=== PATIENT | female | born 1950 | race Caucasian/White ===

== ENCOUNTER → 2018-05-27 09:35 | Outpatient (CLI) | payer MEDICARE, SELFPAY ==
--- NOTE | 2018-05-27 09:40 | MM_ITS ---
MM Dig screening mamm BI w/CAD ORDERING PHYSICIAN : Hoa Malcolm MD PATIENT AGE: 67 years GENDER: Female COMPARISON: Prior studies from [facility]: March 2013, April 2016, October 2011 INDICATION: ITS.REASON: SCREENING no hormones. No new complaints. Noncontributory family history. TECHNIQUE: Standard CC and MLO images were obtained. R2 CAD reviewed. FINDINGS: Mild to moderate residual fibroglandular elements throughout the central and superior breast. Overall fairly Low-density breast bilaterally with no dominant mass nor suspicious calcifications. No significant new areas concern CAD computer review highlights no areas of concern either. bilateral follow-up in one year adequate. . IMPRESSION: ............... Stable bilateral mammogram. No areas of concern No significant new findings. Bilateral follow-up in one year recommended BI-RADS Category: 1 Negative RECOMMENDED FOLLOW-UP: 1YR 1 YEAR FOLLOW-UP (A letter has been sent to the patient regarding results of the study.)
== END ==
PROVIDERS: PCP Emergency Medicine; Visit Provider Emergency Medicine
DX: Z12.31 Encounter for screening mammogram for malignant neoplasm of breast (principal)
CPT/HCPCS: 77067

== ENCOUNTER → 2019-09-27 09:27 | Outpatient (CLI) | payer MEDICARE, SELFPAY ==
[2019-09-27 10:20] VITALS: PULSE 65; PULSE 68
== END ==
PROVIDERS: PCP Family Medicine; Visit Provider Family Medicine
DX: R06.2 Wheezing (principal)
CPT/HCPCS: 94060; 94640

== ENCOUNTER → 2019-11-22 15:36 | Outpatient (CLI) | payer MEDICARE, SELFPAY ==
--- NOTE | 2019-11-22 | XR_ITS ---
PROCEDURE: XR SHOULDER RT MIN 2V CLINICAL INDICATION: Right shoulder pain COMPARISON: No exams were available for comparison FINDINGS: Hypertrophic changes are present at the a chromium with subacromial stenosis. A bony anchor is present at the humeral head with some mild sclerosis along the humeral head. The scapular Y-view suggest an old humeral neck fracture. This however is uncertain. Please correlate with patient's history. Mild osteoarthritic changes are present at the glenohumeral joint. Other findings:None. IMPRESSION: Osteoarthritic and postsurgical changes with questionable old humeral neck fracture Dictated by: Bashir Nicholas MD 11/23/2019 05:07 Bashir Nicholas MD in [place] 11/23/2019 05:07
== END ==
PROVIDERS: PCP Family Medicine; Visit Provider Family Medicine
DX: D69.9 Hemorrhagic condition, unspecified (principal)
CPT/HCPCS: 73030

== ENCOUNTER → 2020-02-04 12:46 | Outpatient (CLI) | payer MEDICARE, SELFPAY ==
[2020-02-04 14:56] LABS: Basophils % 0.3 % (0.1-2.0); Eosinophils # 0.1 K/mm3 (0.0-0.4); Eosinophils % 1.8 % (0.1-12.0); Hematocrit 40.9 % (37.0-47.0); Hemoglobin 12.9 g/dL (12.2-16.2); Lymphocytes # 0.9 K/mm3 (0.7-4.5); Lymphocytes % 16.7 % (10-50); Mean Corpuscular HGB Conc 31.4 g/dL (31.8-35.4); Mean Corpuscular Hemoglobin 30.4 pg (27.0-31.2); Mean Corpuscular Volume 96.6 fl (81-99); Mean Platelet Volume 8.6 fl (7.4-10.4); Monocytes # 0.5 K/mm3 (0.1-1.0); Monocytes % 8.4 % (1.7-9.3); Neutrophils % 72.8 % (37.0-80.0); Platelet Count 223 K/mm3 (142-424); Red Blood Count 4.24 M/mm3 (4.20-5.40); Red Cell Distribution Width 16.5 % (11.5-17.5); White Blood Count 5.4 K/mm3 (4.8-10.8)
== END ==
PROVIDERS: PCP Family Medicine; Visit Provider Nurse Practitioner
DX: Z03.818 Encounter for observation for suspected exposure to other biological agents ruled out (principal)
CPT/HCPCS: 36415; 85025; U0003

== ENCOUNTER → 2020-04-20 09:50 | Outpatient (CLI) | payer MEDICARE, SELFPAY ==
--- NOTE | 2020-04-20 09:52 | MM_ITS ---
PROCEDURE: MM DIG SCREENING MAMM BI W/CAD Digital Breast Tomosynthesis Included CLINICAL INDICATION: SCREENING There is a history of breast cancer in the patient's maternal grandmother diagnosed at age 52. COMPARISON: MG MM MAMMO DIGITAL SCREENING W CAD BILAT from 04/13/2010 MG MM MAMMO DIGITAL SCREENING W CAD BILAT from 11/13/2011 MG [facility]BI MM Dig screening mamm BI w/CAD from 05/27/2018 TECHNIQUE: Standard CC and MLO images and 3D Tomosynthesis was obtained. R2 CAD reviewed. FINDINGS: Mild scattered fibroglandular densities are seen in both breast on a background of fatty breast parenchyma. There are no suspicious lesion in either breast and no suspicious microcalcifications. There are no CAD markings. IMPRESSION: Fibrofatty parenchyma with no suspicious lesions seen BI-RAD Category: 1 Negative FOLLOW-UP: 1YR 1 Year Follow-up (A letter has been sent to the patient regarding results of the study.) Dictated by: Dr. Bhargav Oleary MD 04/26/2020 19:22 Dr. Bhargav Oleary MD in [place] 04/28/2020 09:10
== END ==
PROVIDERS: PCP Family Medicine; Visit Provider Family Medicine
DX: Z12.31 Encounter for screening mammogram for malignant neoplasm of breast (principal)
CPT/HCPCS: 77063; 77067

== ENCOUNTER 2020-10-21 13:46 | Emergency (ER) | payer MEDICARE, SELFPAY ==
[2020-10-21 13:46] VITALS: BP 151/91; PULSE 89; RESP 19; TEMP 36.9; O2SAT 98; BMI 39.9
--- NOTE | 2020-10-21 15:26 | HMH.EDUTC ---
[facility] [place] Disposition Clinical Impression: Right otitis media Qualifiers: Otitis media type: suppurative Chronicity: acute Recurrence: non-recurrent Spontaneous tympanic membrane rupture: without spontaneous rupture Qualified Code(s): H66.001 - Acute suppurative otitis media without spontaneous rupture of ear drum, right ear Asthma exacerbation Qualifiers: Asthma severity: mild Asthma persistence: intermittent Qualified Code(s): J45.21 - Mild intermittent asthma with (acute) exacerbation Disposition: Home, Self-Care Condition on Discharge: Good Instructions: DI for Asthma -- Adult Additional Instructions: You have been tested for COVID19. Please isolate yourself as if you are positive until test results received. Prescriptions: Albuterol Sulfate [Albuterol Sulfate Hfa] 6.7 gm IH Q4HP PRN 30 Days #1 hfa.aer.ad PRN Reason: Wheezing Transmission Status: Pending to [id number] Cefdinir [Omnicef 300mg Capsule] 300 mg PO BID #20 cap Transmission Status: Pending to [id number] predniSONE [Prednisone 20mg Tab] 20 mg PO BID 5 Days #10 tab Transmission Status: Pending to [id number] Referrals: Zac Love MD [Primary Care Provider] - Time of Disposition: 15:35 Medical Decision Making - Jered Inquiry Pt receiving controlled substance: No Vital Signs: 10/21/20 13:46 Temperature 98.4 F Temperature Source Oral Pulse Rate [Left Radial] 89 Respiratory Rate 19 Blood Pressure [Right Arm] 151/91 H Blood Pressure Mean [Right Arm] 111 Blood Pressure Source [Right Arm] Automatic Cuff 02 Sat by Pulse Oximetry 98 Oxygen Delivery Method Room Air [facility] HPI - General Stated complaint: drainage, cough, wheezing Time Seen by Provider: 10/21/20 15:26 Mode of Arrival: Ambulatory Source of Information: Patient Limitations: No Limitations Description of Symptoms (Recalled from Triage Doc. by RN): cough and wheezing with nasal drainage for one week HEENT Symptoms (Recalled from RN notes): Yes Resp Symptoms (Recalled from RN notes): Yes Skin Symptoms (Recalled from RN notes): No MS Symptoms (Recalled from RN notes): No Functional Status (Recalled from RN notes): wnl - History of Present Illness Provider Complaint: Cough, congestion, runny nose, wheezing, right ear pain X 1 week. No fever. Coughs so hard she can't catch her breath. H/O asthma. No known exposure to COVID19. Onset (ago): week(s) (1) Location: chest Relieving factors: none Exacerbating factors: none Associated symptoms: cough, shortness of breath Treatments prior to arrival: none - Related Data Previous Rx's Medication Instructions Recorded clindamycin HCl 150 mg capsule 450 mg PO Q6H 7 Days #84 cap 05/31/18 Albuterol Sulfate [Albuterol 6.7 gm IH Q4HP PRN 30 Days #1 10/21/20 Sulfate Hfa] hfa.aer.ad Cefdinir [Omnicef 300mg Capsule] 300 mg PO BID #20 cap 10/21/20 predniSONE [Prednisone 20mg 20 mg PO BID 5 Days #10 tab 10/21/20 Tab] Allergies Allergy/AdvReac Type Severity Reaction Status Date / Time amoxicillin Allergy vaginal Verified 05/31/18 12:33 itching Sulfa (Sulfonamide Allergy hives Verified 05/31/18 12:33 Antibiotics) - Worker's Comp Is this a Worker's Comp case?: No [facility] History - Hepatitis A Screen Drug use history?: No High risk sexual behaviors?: No History of sexually transmitted infection?: No Currently employed?: No Childcare worker?: No Do you have indoor plumbing?: Yes Do you have electricity?: Yes Attestation statement:: This patient has been screened for Hepatitis A risk factors. I have reviewed the patient's past medical history: Yes Medical History: Reports:: Hypertension Other Medical History: Reports: Thyroid Disease, Other (rheumatoid arthritis) Other Surgeries: Yes: Appendectomy, Tubal Ligation, Other (carpal tunnel x 2, right rotator cuff) Amputation: No Fractures: No - Social History Smoking Status: Never smoker Alcohol Intake: never Occupatio
[2020-10-21 15:53] VITALS: BP 151/91; PULSE 89; RESP 19; TEMP 36.9; O2SAT 98
== END 2020-10-21 15:54 | disposition home or self-care (01) ==
PROVIDERS: Emergency Provider Physician Assistant; PCP Family Medicine
DX: H66.001 Acute suppurative otitis media without spontaneous rupture of ear drum, right ear (principal); J45.21 Mild intermittent asthma with (acute) exacerbation; I10 Essential (primary) hypertension
CPT/HCPCS: 96372; 99202; G0463; U0003

== ENCOUNTER 2021-01-02 12:28 | Emergency (ER) | payer MEDICARE, SELFPAY ==
--- NOTE | 2021-01-02 13:58 | XR_ITS ---
PROCEDURE: XR HAND RT MIN 3V CLINICAL INDICATION: fall Pain COMPARISON: CR XR WRIST RT MIN 3V from 01/02/2021 FINDINGS: The hand has an unremarkable appearance. No fracture or dislocation of the hand evident. There is a nondisplaced avulsion fracture of the radial styloid process also with a longitudinal fracture of the lateral aspect of the distal radius better depicted on the hand image than the wrist image. Other findings:None. IMPRESSION: Negative hand. Nondisplaced fracture of the distal radius laterally and at the radial styloid process Dictated by: Bashir Nicholas MD 01/02/2021 14:32 Bashir Nicholas MD in [place] 01/02/2021 14:32
--- NOTE | 2021-01-02 13:58 | XR_ITS ---
PROCEDURE: XR RIBS RT MIN 3V W CXR1V CLINICAL INDICATION: fall COMPARISON: No exams were available for comparison FINDINGS: Frontal view of the chest shows no acute finding. Multiple views of the right ribs show no obvious displaced fracture or dislocation. [place] screws are present in the shoulders bilaterally. IMPRESSION: Multiple views of the right ribs show no obvious fracture. No lytic or blastic change. Consider follow-up in 7-[address] with 3D reformats if pain persists Frontal view of the chest shows no acute finding Dictated by: Bashir Nicholas MD 01/02/2021 16:01 Bashir Nicholas MD in [place] 01/02/2021 16:01
--- NOTE | 2021-01-02 13:58 | XR_ITS ---
PROCEDURE: XR WRIST RT MIN 3V CLINICAL INDICATION: fall COMPARISON: No exams were available for comparison FINDINGS: There is a nondisplaced avulsion fracture involving the tip of the radial styloid process. Subchondral cystic changes are present at the proximal aspect of the 1st metacarpal and in the mid aspect of the capitate laterally. Other findings:None. IMPRESSION: Nondisplaced avulsion fracture tip of the radial styloid process Dictated by: Bashir Nicholas MD 01/02/2021 14:30 Bashir Nicholas MD in [place] 01/02/2021 14:30
[2021-01-02 13:59] VITALS: BP 189/99; PULSE 93; RESP 18; TEMP 36.9; O2SAT 99; BMI 39.9
[2021-01-02 15:22] VITALS: BP 139/79; PULSE 62; RESP 19; TEMP 36.7
--- NOTE | 2021-01-02 15:28 | HMH.EDUTC ---
[facility] [place] Clinical Impression: Fall Qualifiers: Encounter type: initial encounter Qualified Code(s): W19.XXXA - Unspecified fall, initial encounter Right wrist fracture Qualifiers: Encounter type: initial encounter Fracture type: closed Qualified Code(s): S62.101A - Fracture of unspecified carpal bone, right wrist, initial encounter for closed fracture Contusion of rib on right side Qualifiers: Encounter type: initial encounter Qualified Code(s): S20.211A - Contusion of right front wall of thorax, initial encounter Disposition: Home, Self-Care Condition on Discharge: Good Instructions: Wrist Fracture, DI for Wrist Fracture, How to Take Care of Your Splint Additional Instructions: Rest the extremity, apply ice for 15 minutes as tolerated three or four times per day, Elevate the extremity as tolerated while you are resting. Take ibuprofen for pain. Follow up with Dr. Reynolds (orthopedics). You have an appointment at his office on Wednesday 01/10 at 3:30 pm. Please call tomorrow and verify this appointment Follow up with your regular doctor. GO TO THE ER FOR ANY WORSENING SYMPTOMS Use the incentive spirometer for the next week or so 10 times every 2 hours while you are awake. Referrals: Zac Love MD [Primary Care Provider] - Fabio Reynolds MD [Staff Physician] - 01/10/21 3:30 pm Time of Disposition: 15:35 Medical Decision Making - Medical Records Medical records reviewed: No: I reviewed the patient's medical records. - Jered Inquiry Pt receiving controlled substance: No Vital Signs: 01/02/21 13:59 01/02/21 15:22 Temperature 98.5 F 98.1 F Temperature Source Oral Pulse Rate 62 Pulse Rate [Left] 93 H Respiratory Rate 18 19 Blood Pressure 139/79 Blood Pressure [Right Arm] 189/99 H Blood Pressure Mean [Right Arm] 129 02 Sat by Pulse Oximetry 99 - Radiology Data #1 Image(s): Wrist Image Reviewed: Yes I reviewed the patient's radiology image, Yes I have reviewed radiologist's interpretation Preliminary Findings: Abnormal PROCEDURE: XR WRIST RT MIN 3V CLINICAL INDICATION: fall COMPARISON: No exams were available for comparison FINDINGS: There is a nondisplaced avulsion fracture involving the tip of the radial styloid process. Subchondral cystic changes are present at the proximal aspect of the 1st metacarpal and in the mid aspect of the capitate laterally. Other findings:None. IMPRESSION: Nondisplaced avulsion fracture tip of the radial styloid process Dictated by: Bashir Nicholas MD 01/02/2021 14:30 Bashir Nicholas MD in [place] 01/02/2021 14:30 #2 Image(s): Hand Image Reviewed: Yes I reviewed the patient's radiology image, Yes I have reviewed radiologist's interpretation Preliminary Findings: Abnormal PROCEDURE: XR HAND RT MIN 3V CLINICAL INDICATION: fall Pain COMPARISON: CR XR WRIST RT MIN 3V from 01/02/2021 FINDINGS: The hand has an unremarkable appearance. No fracture or dislocation of the hand evident. There is a nondisplaced avulsion fracture of the radial styloid process also with a longitudinal fracture of the lateral aspect of the distal radius better depicted on the hand image than the wrist image. Other findings:None. IMPRESSION: Negative hand. Nondisplaced fracture of the distal radius laterally and at the radial styloid process Dictated by: Bashir Nicholas MD 01/02/2021 14:32 Bashir Nicholas MD in [place] 01/02/2021 14:32 #3 Image(s): Chest Image Reviewed: Yes I reviewed the patient's radiology image, Yes I have reviewed radiologist's interpretation Preliminary Findings: Abnormal PROCEDURE: XR RIBS RT MIN 3V W CXR1V CLINICAL INDICATION: fall COMPARISON: No exams were available for comparison FINDINGS: Frontal view of the chest shows no acute finding. Multiple views of the right ribs show no obvious displaced fracture or dislocation. [place] screws are present in the shoulders
== END 2021-01-02 15:53 | disposition home or self-care (01) ==
PROVIDERS: Emergency Provider Nurse Practitioner Family; PCP Family Medicine
DX: S20.211A Contusion of right front wall of thorax, initial encounter (principal); S62.101A Fracture of unspecified carpal bone, right wrist, initial encounter for closed fracture; W01.0XXA Fall on same level from slipping, tripping and stumbling without subsequent striking against object, initial encounter
CPT/HCPCS: 29125; G0463; 71101; 73110; 73130; 99202

== ENCOUNTER → 2021-02-06 09:52 | Outpatient (CLI) | payer MEDICARE, SELFPAY ==
--- NOTE | 2021-02-06 09:55 | XR_ITS ---
PROCEDURE: XR WRIST RT MIN 3V CLINICAL INDICATION: RT wrist fx, OUT OF CAST COMPARISON: CR XR HAND RT MIN 3V from 01/02/2021 CR XR WRIST RT MIN 3V from 01/02/2021 FINDINGS: Avulsion fracture noted at tip of the radius styloid process. Fracture line is still visible. The joint spaces are well-preserved. No significant degenerative/arthritic changes. No erosive changes evident. Other findings:Generalized osteopenia. IMPRESSION: No change nondisplaced avulsion fracture of the radial styloid process Dictated by: Bashir Nicholas MD 02/06/2021 15:45 Bashir Nicholas MD in [place] 02/06/2021 15:45
== END ==
PROVIDERS: PCP Family Medicine; Visit Provider Orthopaedic Surgery
DX: S52.511A Displaced fracture of right radial styloid process, initial encounter for closed fracture (principal)
CPT/HCPCS: 73110

== ENCOUNTER 2021-02-13 11:00 | Outpatient (RCR) | payer MEDICARE, SELFPAY | END 2021-02-13 11:57 | disposition home or self-care (01) | LOC: OT 11:00 | PROVIDERS: Visit Provider Orthopaedic Surgery | DX: S62.101A Fracture of unspecified carpal bone, right wrist, initial encounter for closed fracture (principal) | CPT/HCPCS: 97763 ==

== ENCOUNTER 2021-02-25 13:37 | Emergency (ER) | payer MEDICARE, SELFPAY ==
[2021-02-25 14:11] VITALS: BP 116/91; PULSE 68; RESP 18; TEMP 36.8; O2SAT 98; BMI 39.2
--- NOTE | 2021-02-25 15:56 | HMH.EDDIZZ ---
ED Disposition Clinical Impression: Benign paroxysmal positional vertigo Disposition: Home, Self-Care Condition on Discharge: Good Instructions: Vertigo Additional Instructions: Please follow-up with your primary care physician in 2 to 3 days for further management. Please utilize the meclizine as prescribed along with the Zofran as needed. Please return back to the emergency department for any concerning symptoms such as symptoms that do not improve, headache, numbness or weakness, difficulty ambulating or any other concerning symptoms. Prescriptions: Meclizine HCl [Meclizine 25mg Tab] 25 mg PO Q12 #10 tab Prescription Printed ondansetron HCL [Zofran 4mg Tab*] 4 mg PO Q8H PRN #20 tab PRN Reason: Vomiting Prescription Printed Referrals: Zac Love MD [Primary Care Provider] - Time of Disposition: 16:45 - Critical Care Critical Care Time: No Attestation: On 02/25/21, the high probability of a clinically significant, sudden or life threatening deterioration of the following system(s) required my full and direct attention, intervention and personal management. The time I documented below is in addition to time spent performing reported procedures but includes the following listed in this critical care notation. Medical Decision Making - Medical Records Medical records reviewed: Yes: I reviewed the patient's medical records. - Jered Inquiry Pt receiving controlled substance: No Vital Signs: 02/25/21 14:11 02/25/21 16:18 Temperature 98.3 F 98.3 F Temperature Source Oral Pulse Rate 66 Pulse Rate [Right Radial] 68 Respiratory Rate 18 18 Blood Pressure 112/88 Blood Pressure [Right Arm] 116/91 H Blood Pressure Mean [Right Arm] 99 Blood Pressure Source [Right Arm] Automatic Cuff Blood Pressure Position [Right Arm] Sitting 02 Sat by Pulse Oximetry 98 Oxygen Delivery Method Room Air - Lab Data Lab results reviewed: Yes: I reviewed the patient's lab results. Lab Results 02/25/21 16:14: SARS-CoV-2 (PCR) Not detected, Influenza A Untype (PCR) Not detected, Influenza Type B (PCR) Not detected Orders (Tests/Meds): ED MEDICATIONS Discontinued Medications Generic Name Dose Route Start Last Admin Trade Name Freq PRN Reason Stop Dose Admin Meclizine HCl 50 mg 02/25/21 14:47 02/25/21 15:00 Meclizine 25mg Tablet PO 02/25/21 14:48 50 mg ONCE ONE Administration Ondansetron HCl 4 mg 02/25/21 14:47 02/25/21 15:00 Ondansetron 4mg Odt SL 02/25/21 14:48 4 mg ONCE ONE Administration Medical Decision Narrative: Mrs. Corbin is a 70-year-old female with past medical history for recurrent vertigo and severe allergies who presents to the emergency department for dizziness for the last 2 days. Patient is afebrile and hemodynamically stable on arrival. Patient has no focal deficits or other concerning signs on exam. Differentials to consider but not limited to include; BPPV, M?ni?re's disease/labyrinthitis, low suspicion for acute intracranial process given no focal deficits on exam, furthermore symptoms are similar to prior episodes of vertigo. [place]sp[place]-Hallpike maneuvers performed with minimal relief. Patient is given meclizine 50 and Zofran upon reassessment assessment symptoms have improved. Patient is discharged with a prescription for meclizine and Zofran and informed to follow-up with her primary care physician in 2 to 3 days for further management. Patient has an appointment with her retail customer service specialist tomorrow to discuss decongestants. Patient discharged in stable condition. Of note prior to dc patient swabbed for COVID 19, neg. Dizzy HPI - General Chief Complaint: Dizziness Stated Complaint: dizzy, right ear pain Time Seen by Provider: 02/25/21 14:20 Mode of Arrival: Wheelchair Source of Information: Patient Limitations: No Limitations Description of Symptoms (Recalled from ER Triage Doc. by RN): Pt c/o dizziness and ear pain. Pt reports hx of vertigo and state
[2021-02-25 16:18] VITALS: BP 112/88; PULSE 66; RESP 18; TEMP 36.8; O2SAT 98
[2021-02-25 16:41] LABS: Coronavirus 19, PCR Not Detected (NotDetected); Influenza A, PCR Not Detected (NotDetected); Influenza B, PCR Not Detected (NotDetected)
== END 2021-02-25 16:19 | disposition home or self-care (01) ==
PROVIDERS: Emergency Provider Student in an Organized Health Care Education/Training Program; PCP Family Medicine
DX: H81.11 Benign paroxysmal vertigo, right ear (principal); K21.9 Gastro-esophageal reflux disease without esophagitis; I10 Essential (primary) hypertension; Z20.822 Contact with and (suspected) exposure to COVID-19
CPT/HCPCS: 99282; C9803; U0003; U0005

== ENCOUNTER 2021-03-13 14:00 | Outpatient (RCR) | payer MEDICARE, SELFPAY ==
--- NOTE | 2021-02-13 11:42 | HMH.OTOPEV ---
OT Inpatient Evaluation Rehab OT Outpatient Eval Start: 02/13/21 11:32 Freq: Status: Active Protocol: Document 02/13/21 11:32 RMSHELBY (Rec: 02/13/21 11:42 [facility] [id number]) Electronically Signed By Juan Manuel Palafox OT 02/13/21 11:32 Outpatient Therapy Subjective History Subjective History Pt is a 70 year old female who reports to therapy for initial evaluation to right wrist. Pt reports she fell on 12/31/20 resulting in a right styloid fx. She did not require surgery. She was in a cast/splint for 6 weeks and was removed from this ~1 week ago. She is now in a removable wrist cock up brace at all times. Pt reports she continues to have pain in the wrist, especially around the thumb base. Therapist does observe some brusing and swelling in this area as well. Pt demonstrates with decreased AROM and strength at right wrist. Pt is right hand dominant. Pt will continue to be seen in order to address all deficits. STG R hand inspector poising strength: 25 lbs LTG R hand inspector poising strength: 35 lbs Chief Complaint Pain,Stiff,Weakness,Decreased [place]ot Agent Strength Symptom Type Ache,Throb,Sharp,Dull Symptoms Relieved By Rest/Positioning Symptoms Aggravated By Physical Activity,Lifting Prior Functional Limitations None Current Functional Limitations Reaching,Lifting,Housework, Dressing,Driving,Sleeping, Recreation Activity Symptom Description Intermittent,Activity Dependent Level of pain today (0-10) 0 Pain scale - at its best (0-10) 0 Pain scale - at its worst (0-10) 10 Wrist/Hand Eval Wrist Range of Motion Right Wrist Extension Active Range of Motion ( 40 degrees degrees) Wrist Flexion Active Range of Motion ( 38 degrees degrees) Wrist Radial Deviation Active Range of 25 degrees Motion (degrees) Wrist Ulnar Deviation Active Range of 20 degrees Motion (degrees) Forearm Supinatio
--- NOTE | 2021-03-13 14:55 | HMH.RHREAS ---
Rehab Reassessment Rehab OP Re-assessment Start: 03/13/21 14:32 Freq: Status: Active Protocol: Document 03/13/21 14:32 RMARSHALL (Rec: 03/13/21 14:55 RMARSHALL [id number]) Electronically Signed By Juan Manuel Palafox OT 03/13/21 14:32 Rehab Re-assessment Subjective Subjective I think it is doing much better. Objective Objective Notes Pt continues to be seen in order to address right wrist deficits. Each session pt engages in right wrist/hand/ investment banking analyst strengthening/AROM exercises. Pt also receives PROM manual stretching to right wrist. Modalitties are provided as well in order to decrease pain/inflammation. Assessment Progress Assessment Progressing as Expected Assessment Notes Pt demonstrates great improvement since starting therapy. Overall she has improved significantly with AROM and strength at right wrist. Pt reports she is able to complete all activities she desires at home. Pt reports she has minimal pain and if she does have pain it is only a 1/10. Pt also feels she is 85% better since starting therapy. Pt returns to doctor on . Therapist is comfortable with discharge if ortho approves. Current AROM/Strength at right wrist: Flex: 50 degrees; 4- Ext: 50 degrees;4 RD: 30 degrees; 4 UD: 26 degrees; 4 Supination: 90 degrees; 4 Pronation: 90 degrees; [address]-5 LT-5 Goals Not Met See below Revised Goals LT Plan Plan Continue with OT plan of care until she returns to doctor on March 20. If ortho is agreeable with discharge, pt will be discharged. Frequency of Therapy 1x a week Duration of
== END 2021-03-13 14:05 | disposition home or self-care (01) ==
LOC: OT 14:00
PROVIDERS: Visit Provider Orthopaedic Surgery
DX: S52.514D Nondisplaced fracture of right radial styloid process, subsequent encounter for closed fracture with routine healing (principal)
CPT/HCPCS: 97010; 97014; 97035; 97110; 97140; 97164; 97166; G0283

== ENCOUNTER → 2021-03-27 15:41 | Outpatient (CLI) | payer MEDICARE, SELFPAY ==
--- NOTE | 2021-03-27 15:46 | XR_ITS ---
FINAL REPORT CLINICAL HISTORY: right wrist fracture; doi about 11 weeks COMPARISON: February 06, 2021 FINDINGS: RIGHT WRIST 3 views were obtained. There is no acute fracture or dislocation. There are mild degenerative changes. There is a chronic irregularity of the radial styloid that may represent a prior fracture, stable. There is a questionable nondisplaced fracture of the ulnar styloid that appears stable. There is no soft tissue abnormality. IMPRESSION: Findings are overall unchanged from the prior exam. Reviewed, Interpreted and Dictated by García Oliveira III, MD Transcribed by Lilly Goodman Authenticated by García Oliveira III, MD on 03/27/2021 04:20:44 PM [facility]
== END ==
PROVIDERS: PCP Family Medicine; Visit Provider Orthopaedic Surgery
DX: S52.511A Displaced fracture of right radial styloid process, initial encounter for closed fracture (principal)
CPT/HCPCS: 73110

== ENCOUNTER → 2021-08-15 10:37 | Outpatient (CLI) | payer MEDICARE, SELFPAY | PROVIDERS: PCP Family Medicine; Visit Provider Nurse Practitioner | DX: U07.1 COVID-19 (principal); J01.90 Acute sinusitis, unspecified | CPT/HCPCS: C9803; U0003; U0005 ==

== ENCOUNTER → 2021-08-22 11:08 | Outpatient (CLI) | payer MEDICARE, SELFPAY ==
--- NOTE | 2021-08-22 11:14 | XR_ITS ---
FINAL REPORT CLINICAL HISTORY: COVID-19, BRONCHITIS, COUGH COMPARISON: January 02, 2021 FINDINGS: Two views of the chest were obtained. The heart size and pulmonary vascularity are within normal limits. The mediastinum is normal. There is mild atelectasis in the right lung base. There is no pneumothorax. The bony thorax is intact. There is postoperative change in the right proximal humerus. IMPRESSION: Mild atelectasis right lung base. Reviewed, Interpreted and Dictated by García Oliveira III, MD Transcribed by Margarita Bolivar Authenticated and [facility]
== END ==
PROVIDERS: PCP Nurse Practitioner; Visit Provider Nurse Practitioner
DX: U07.1 COVID-19 (principal); J40 Bronchitis, not specified as acute or chronic; R05.9 Cough, unspecified
CPT/HCPCS: 71046

== ENCOUNTER → 2021-09-25 12:26 | Outpatient (CLI) | payer MEDICARE, SELFPAY ==
[2021-09-25 18:46] LABS: Alanine Aminotransferase 24 U/L (12-78); Albumin Level 3.9 g/dl (3.5-5.0); Albumin/Globulin Ratio 1.4 (1.1-1.8); Alkaline Phosphatase 103 U/L (38-126); Anion Gap 10.9 mEq/L (5-15); Aspartate Amino Transferase 32 U/L (14-36); Bilirubin,Total 0.2 mg/dl (0.2-1.3); Blood Urea Nitrogen 32 mg/dl (7-17); Calcium 9.5 mg/dl (8.4-10.2); Carbon Dioxide 24 mmol/L (22.0-30.0); Chloride 108 mmol/L (98-107); Chol/HDL Ratio 3.2 (1-3.5); Cholesterol 175 mg/dl (140-200); Estimated Glomerular Filt Rate 49 ml/min (>60); GFR (African American) 59 ML/MIN (>60); Globulin 2.8 g/dL (1.3-3.2); Glucose 93 mg/dl (74-100); HDL Cholesterol 54 mg/dl (40-60); Potassium 3.9 mmoL/L (3.5-5.1); Sodium 139 mmol/L (136-145); Total Protein,Serum 6.7 g/dl (6.3-8.2); Triglycerides 121 mg/dl (30-150); VLDL Cholesterol 24 mg/dL (0-40)
[2021-09-25 18:57] LABS: Direct LDL Cholesterol 91.34 mg/dL (100-129)
[2021-09-25 19:03] LABS: 25-OH Vitamin D, Total 85.3 ng/mL (30-100); Free T4 (Free Thyroxine) 1.63 ng/dl (0.78-2.19)
[2021-09-25 19:04] LABS: Basophils # 0.1 K/mm3 (0-0.2); Basophils % 1.8 % (0.1-2.0); Eosinophils # 0.2 K/mm3 (0.0-0.4); Eosinophils % 3.5 % (0.1-12.0); Hematocrit 39.8 % (37.0-47.0); Hemoglobin 12.4 g/dL (12.2-16.2); Lymphocytes # 1.3 K/mm3 (0.7-4.5); Lymphocytes % 28.5 % (10-50); Mean Corpuscular HGB Conc 31.3 g/dL (31.8-35.4); Mean Corpuscular Hemoglobin 30.6 pg (27.0-31.2); Mean Corpuscular Volume 97.9 fl (81-99); Mean Platelet Volume 10.2 fl (7.4-10.4); Monocytes # 0.4 K/mm3 (0.1-1.0); Monocytes % 8.1 % (1.7-9.3); Neutrophils # 2.5 K/mm3 (1.8-7.8); Platelet Count 250 K/mm3 (142-424); Red Blood Count 4.07 M/mm3 (4.20-5.40); Red Cell Distribution Width 17.5 % (11.5-17.5); White Blood Count 4.4 K/mm3 (4.8-10.8)
[2021-09-25 19:19] LABS: Thyroid Stimulating Hormone 1.29 uIU/mL (0.465-4.68)
[2021-09-25 19:29] LABS: Microalbumin < 6.000 mg/L (0-16.7)
[2021-09-25 19:38] LABS: Vitamin B12 612 pg/mL (239-931)
== END ==
PROVIDERS: PCP Nurse Practitioner; Visit Provider Nurse Practitioner
DX: N18.9 Chronic kidney disease, unspecified (principal); I10 Essential (primary) hypertension; E55.9 Vitamin D deficiency, unspecified
CPT/HCPCS: 80053; 80061; 82043; 82306; 82607; 84439; 84443; 85025

== ENCOUNTER → 2021-10-09 14:51 | Outpatient (CLI) | payer MEDICARE, SELFPAY ==
--- NOTE | 2021-10-09 14:51 | MM_ITS ---
PROCEDURE INFORMATION: Exam: MG Bilateral Screening 3D Mammography Exam date and time: 10/09/2021 3:02 PM Age: 71 years old Clinical indication: Screening examination TECHNIQUE: Imaging protocol: Bilateral Screening tomosynthesis and 2D mammography including computer-aided detection (CAD) when performed. COMPARISON: 1. MG MM DIG SCREENING MAMM BI W/CAD 04/20/2020 9:52 AM 2. MG [facility] MM Dig screening mamm BI w/CAD 05/27/2018 10:29 AM FINDINGS: MAMMOGRAPHY: Breast composition: The breasts are almost entirely fatty. Mass: None. Architectural distortion: None. Calcifications: No suspicious calcifications. Asymmetric density: None. Skin thickening: None. Axillary adenopathy: None. IMPRESSION: No mammographic evidence of malignancy. Annual screening is recommended unless otherwise clinically indicated. ASSESSMENT: BI-RADS Category 1: Negative
== END ==
PROVIDERS: PCP Nurse Practitioner; Visit Provider Nurse Practitioner
DX: Z12.31 Encounter for screening mammogram for malignant neoplasm of breast (principal)
CPT/HCPCS: 77063; 77067

== ENCOUNTER → 2023-01-30 15:00 | Outpatient (POV) | payer MEDICARE, SELFPAY | PROVIDERS: PCP Nurse Practitioner; Visit Provider Specialist/Technologist | DX: Z00.00 Encounter for general adult medical examination without abnormal findings (principal) ==

== ENCOUNTER 2023-03-24 23:16 | Outpatient (CLI) | payer MEDICARE, SELFPAY ==
[2023-03-24 18:14] LABS: Influenza A, PCR Not Detected (NotDetected); Influenza B, PCR Not Detected (NotDetected)
[2023-03-24 18:58] LABS: Coronavirus 19, PCR Detected (NotDetected)
== END 2023-03-24 23:59 ==
LOC: LAB.DROPOF 23:17
PROVIDERS: PCP Nurse Practitioner; Visit Provider Nurse Practitioner
DX: J06.9 Acute upper respiratory infection, unspecified (principal); U07.1 COVID-19
CPT/HCPCS: 87636

== ENCOUNTER 2023-07-08 18:00 | Outpatient (CLI) | payer MEDICARE, SELFPAY ==
[2023-07-08 18:48] LABS: Alanine Aminotransferase 30 U/L (12-78); Albumin Level 4.3 g/dl (3.5-5.0); Albumin/Globulin Ratio 1.5 (1.1-1.8); Alkaline Phosphatase 118 U/L (38-126); Anion Gap 9.9 mEq/L (5-15); Aspartate Amino Transferase 38 U/L (14-36); Blood Urea Nitrogen 21 mg/dl (7-17); Calcium 10.1 mg/dl (8.4-10.2); Carbon Dioxide 26 mmol/L (22.0-30.0); Chloride 109 mmol/L (98-107); Estimated Glomerular Filt Rate 44 ml/min (>60); GFR (African American) 54 ML/MIN (>60); Globulin 2.9 g/dL (1.3-3.2); Glucose 91 mg/dl (74-100); Potassium 3.9 mmoL/L (3.5-5.1); Sodium 141 mmol/L (136-145); Total Protein,Serum 7.2 g/dl (6.3-8.2)
[2023-07-08 19:53] LABS: Creatinine,Urine Random 167 mg/dL (Not Estab.)
[2023-07-08 19:55] LABS: Microalbumin/Creatinine Ratio 12.5
== END 2023-07-08 23:59 | disposition home or self-care (01) ==
LOC: LAB.DROPOF 07-09 09:06
PROVIDERS: PCP Nurse Practitioner; Visit Provider Nurse Practitioner
DX: R30.0 Dysuria (principal); I10 Essential (primary) hypertension; N18.9 Chronic kidney disease, unspecified; B95.1 Streptococcus, group B, as the cause of diseases classified elsewhere; Z79.899 Other long term (current) drug therapy
CPT/HCPCS: 80053; 82043; 82570; 87086

== ENCOUNTER 2023-09-11 09:12 | Outpatient (CLI) | payer MEDICARE, SELFPAY ==
[2023-09-11 19:28] LABS: Basophils % 0.4 % (0.1-2.0); Eosinophils # 0.2 K/mm3 (0.0-0.4); Eosinophils % 4.8 % (0.1-12.0); Hematocrit 36.1 % (37.0-47.0); Hemoglobin 11.9 g/dL (12.2-16.2); Lymphocytes # 1.4 K/mm3 (0.7-4.5); Lymphocytes % 31.9 % (10-50); Mean Corpuscular Hemoglobin 30.9 pg (27.0-31.2); Mean Corpuscular Volume 93.4 fl (81-99); Mean Platelet Volume 9.6 fl (7.4-10.4); Monocytes # 0.3 K/mm3 (0.1-1.0); Monocytes % 7.6 % (1.7-9.3); Neutrophils # 2.4 K/mm3 (1.8-7.8); Neutrophils % 55.3 % (37.0-80.0); Platelet Count 163 K/mm3 (142-424); Red Blood Count 3.87 M/mm3 (4.20-5.40); Red Cell Distribution Width 16.6 % (11.5-17.5); White Blood Count 4.3 K/mm3 (4.8-10.8)
[2023-09-11 19:40] LABS: Alanine Aminotransferase 28 U/L (12-78); Albumin Level 4.1 g/dl (3.5-5.0); Albumin/Globulin Ratio 1.4 (1.1-1.8); Alkaline Phosphatase 103 U/L (38-126); Anion Gap 12.2 mEq/L (5-15); Aspartate Amino Transferase 34 U/L (14-36); Bilirubin,Indirect 0.6 mg/dL (0.0-0.9); Bilirubin,Total 0.6 mg/dl (0.2-1.3); Bilirubin,Unconjugated 0.6 mg/dL (0.0-1.1); Blood Urea Nitrogen 25 mg/dl (7-17); Calcium 9.4 mg/dl (8.4-10.2); Carbon Dioxide 26 mmol/L (22.0-30.0); Chloride 107 mmol/L (98-107); Estimated Glomerular Filt Rate 44 ml/min (>60); GFR (African American) 53 ML/MIN (>60); Globulin 2.9 g/dL (1.3-3.2); Glucose 88 mg/dl (74-100); Potassium 4.2 mmoL/L (3.5-5.1); Sodium 141 mmol/L (136-145)
== END 2023-09-11 23:59 | disposition home or self-care (01) ==
LOC: LAB.DROPOF 09-12 09:13
PROVIDERS: PCP Nurse Practitioner; Visit Provider Nurse Practitioner
DX: R42 Dizziness and giddiness (principal); J30.9 Allergic rhinitis, unspecified
CPT/HCPCS: 80053; 80076; 85025

== ENCOUNTER 2023-09-16 19:38 | Outpatient (CLI) | payer MEDICARE, SELFPAY ==
[2023-09-16 21:00] LABS: Alanine Aminotransferase 26 U/L (12-78); Albumin Level 3.9 g/dl (3.5-5.0); Albumin/Globulin Ratio 1.3 (1.1-1.8); Alkaline Phosphatase 107 U/L (38-126); Anion Gap 14.5 mEq/L (5-15); Aspartate Amino Transferase 31 U/L (14-36); Bilirubin,Total 0.6 mg/dl (0.2-1.3); Blood Urea Nitrogen 27 mg/dl (7-17); Calcium 9.9 mg/dl (8.4-10.2); Carbon Dioxide 27 mmol/L (22.0-30.0); Chloride 104 mmol/L (98-107); Chol/HDL Ratio 2.8 (1-3.5); Cholesterol 169 mg/dl (140-200); Estimated Glomerular Filt Rate 40 ml/min (>60); GFR (African American) 49 ML/MIN (>60); Globulin 2.9 g/dL (1.3-3.2); Glucose 84 mg/dl (74-100); HDL Cholesterol 60 mg/dl (40-60); Potassium 4.5 mmoL/L (3.5-5.1); Sodium 141 mmol/L (136-145); Total Protein,Serum 6.8 g/dl (6.3-8.2); Triglycerides 70 mg/dl (30-150); VLDL Cholesterol 14 mg/dL (0-40)
[2023-09-16 21:11] LABS: Direct LDL Cholesterol 82.04 mg/dL (100-129)
[2023-09-16 21:15] LABS: Free T4 (Free Thyroxine) 1.73 ng/dl (0.78-2.19)
[2023-09-16 21:17] LABS: 25-OH Vitamin D, Total 75.3 ng/mL (30-100)
[2023-09-16 21:51] LABS: Vitamin B12 656 pg/mL (239-931)
[2023-09-17 10:19] LABS: Thyroid Stimulating Hormone 0.03 uIU/mL (0.465-4.68)
== END 2023-09-16 23:59 | disposition home or self-care (01) ==
LOC: LAB.DROPOF 19:40
PROVIDERS: PCP Nurse Practitioner; Visit Provider Nurse Practitioner
DX: E78.5 Hyperlipidemia, unspecified (principal); I10 Essential (primary) hypertension; E03.9 Hypothyroidism, unspecified; E55.9 Vitamin D deficiency, unspecified; Z68.37 Body mass index [BMI] 37.0-37.9, adult; F17.210 Nicotine dependence, cigarettes, uncomplicated
CPT/HCPCS: 80053; 80061; 82306; 82607; 84439; 84443

== ENCOUNTER 2023-10-08 13:02 | Outpatient (CLI) | payer MEDICARE, SELFPAY ==
--- NOTE | 2023-10-08 13:02 | MM_ITS ---
PROCEDURE INFORMATION: Exam: MG Bilateral Screening 3D Mammography Exam date and time: 10/08/2023 1:02 PM Age: 73 years old Clinical indication: Screening examination. Her maternal grandmother had breast cancer at age 52. TECHNIQUE: Imaging protocol: Bilateral Screening tomosynthesis and 2D mammography including computer-aided detection (CAD) when performed. COMPARISON: 1. MG MM DIG SCREENING MAMM BI W/CAD 10/09/2021 3:02 PM 2. MG MM DIG SCREENING MAMM BI W/CAD 04/20/2020 9:52 AM 3. MG [facility] MM Dig screening mamm BI w/CAD 05/27/2018 10:29 AM 4. MG MM MAMMO DIGITAL SCREENING W CAD BILAT 11/13/2011 11:19 AM FINDINGS: MAMMOGRAPHY: Breast composition: The breasts are almost entirely fatty. Mass: No suspicious mass. Architectural distortion: None. Calcifications: No suspicious calcifications. Asymmetric density: None. Skin thickening: None. Axillary adenopathy: None. IMPRESSION: No mammographic evidence of malignancy. Annual screening is recommended unless otherwise clinically indicated. ASSESSMENT: BI-RADS Category 1: Negative
== END 2023-10-08 23:59 | disposition home or self-care (01) ==
LOC: RAD 13:02
PROVIDERS: PCP Nurse Practitioner; Visit Provider Nurse Practitioner
DX: Z12.31 Encounter for screening mammogram for malignant neoplasm of breast (principal)
CPT/HCPCS: 77063; 77067

== ENCOUNTER 2023-11-10 12:19 | Outpatient (CLI) | payer MEDICARE, SELFPAY ==
[2023-11-10 21:40] LABS: Free T4 (Free Thyroxine) 1.83 ng/dl (0.78-2.19)
[2023-11-10 23:15] LABS: Thyroid Stimulating Hormone 0.62 uIU/mL (0.465-4.68)
== END 2023-11-10 23:59 | disposition home or self-care (01) ==
LOC: LAB.DROPOF 11-11 10:10
PROVIDERS: PCP Nurse Practitioner; Visit Provider Nurse Practitioner
DX: E03.9 Hypothyroidism, unspecified (principal)
CPT/HCPCS: 84439; 84443

== ENCOUNTER 2023-11-20 09:08 | Outpatient (CLI) | payer MEDICARE, SELFPAY ==
--- NOTE | 2023-11-20 09:09 | US_ITS ---
FINAL REPORT CLINICAL HISTORY: RUQ abdominal pain COMPARISON: None FINDINGS: Sonographic images of the right upper quadrant were obtained. The pancreas is partially obscured. There is increased echogenicity in the liver consistent with fatty infiltration. The gallbladder appears normal without evidence of gallstones.There is no evidence of biliary ductal dilatation.The common duct measures 4mm. Limited images of the right kidney are unremarkable. IMPRESSION: Fatty infiltration of the liver without evidence of biliary ductal dilatation. Reviewed, Interpreted and Dictated by García Oliveira III, MD Transcribed by Mickie Tee Authenticated and [facility]
== END 2023-11-20 23:59 | disposition home or self-care (01) ==
LOC: RAD 09:09
PROVIDERS: PCP Nurse Practitioner; Visit Provider Nurse Practitioner
DX: R10.11 Right upper quadrant pain (principal)
CPT/HCPCS: 76705

== ENCOUNTER 2023-12-17 09:51 | Outpatient (CLI) | payer MEDICARE, SELFPAY ==
--- NOTE | 2023-12-17 09:53 | NM_ITS ---
FINAL REPORT CLINICAL HISTORY: RUQ pain 10:55AM 7.91 MCI TC CHOLETEC 1.7 MCG CCK MILD PAIN WITH CCK COMPARISON: None FINDINGS: The patient was injected with 7.91 mCi of technetium 99m Choletec and subsequently 1.7 mcg of CCK. Images of the abdomen were obtained for one hour. There is normal distribution of radiopharmaceutical throughout the liver. Sequential images demonstrate progressive accumulation of activity within the gallbladder. There is a calculated ejection fraction of 90%, within normal limits. IMPRESSION: Normal ejection fraction of 90%. Reviewed, Interpreted and Dictated by Tong Robertson MD Transcribed by Margarita Bolivar Authenticated and [facility]
[2023-12-17] MEDS: SINCALIDE 1.7 MCG in 0.9 % SODIUM CHLORIDE 50 ML 100 MCG IV (12:43)
[2023-12-17] MEDS: SODIUM CHLORIDE 0.9% 10ML SYR (RAD ONLY) 10 ML IV (12:43)
[2023-12-17] MEDS: ISOTOPE CHOLETECH;1 DOSE (UP TO 15 MCI) IV (12:43)
== END 2023-12-17 23:59 | disposition home or self-care (01) ==
LOC: RAD 09:53
PROVIDERS: PCP Nurse Practitioner; Visit Provider Nurse Practitioner
DX: R10.11 Right upper quadrant pain (principal)
CPT/HCPCS: 78227; A9537; J2805

== ENCOUNTER 2024-03-02 11:53 | Emergency (ER) | payer MEDICARE, SELFPAY ==
[2024-03-02 12:05] VITALS: BP 149/76; PULSE 96; RESP 21; TEMP 38.1; O2SAT 97; BMI 38.9
--- NOTE | 2024-03-02 12:20 | ED_ITS ---
Discharge Plan Disposition Patient Disposition: Home, Self-Care Condition: Good Prescriptions Prescriptions: New azithromycin [Zithromax Z-Trevon] 250 mg tablet See Rx Instructions .ROUTE .COMPLEX 5 Days Qty: 6 0RF Rx Instructions: For 250 mg dose pack: take 500 mg today (day 1), then 250 mg for 4 days (days 2-5) methylprednisolone [Medrol (Trevon)] 4 mg tablets,dose pack See Rx Instructions .Route .COMPLEX 6 Days Qty: 21 0RF Rx Instructions: taper pack; guaifenesin [Mucinex] 600 mg tablet extended release 12hr 600 mg PO BID PRN (Reason: cough) Qty: 20 0RF No Action (DME) blood pressure test kit-large Kit See Rx Instructions .Route Qty: 1 0RF Rx Instructions: As directed tizanidine 2 mg tablet 2 mg PO HS cetirizine 10 mg tablet 10 mg PO DAILY Patient Comments: TAKE ONE TABLET BY MOUTH ONE TIME DAILY tizanidine 4 mg tablet 4 mg PO HS Patient Comments: TAKE 1 TABLET BY MOUTH NIGHTLY NEEDED FOR MUSCLE SPASMS. omeprazole 40 mg capsule,delayed release(DR/EC) 40 mg PO BID Patient Comments: TAKE 1 CAPSULE BY MOUTH 2 TIMES DAILY. methotrexate sodium 2.5 mg tablet 2.5 mg PO DAILY dicyclomine 20 mg tablet 20 mg PO QID Patient Comments: TAKE 1 TABLET BY MOUTH 4 TIMES DAILY (BEFORE MEALS AND NIGHTLY). montelukast 10 mg tablet 10 mg PO DAILY Patient Comments: TAKE 1 TABLET BY MOUTH ONCE DAILY. budesonide-formoterol [Symbicort] 80-4.5 mcg/actuation HFA aerosol inhaler 2 puff INHALATION BID Patient Comments: INHALE 2 PUFFS INTO THE LUNGS TWICE DAILY. Referrals Follow up/Referrals: Angie Otero APRN [Primary Care Provider] - See instructions Activity Restrictions/Add. Instructions Additional Instructions/Restrictions: * Start antibiotic today. Be sure to complete entire prescription even if feeling better * Monitor temp. Tylenol every 4 hours as needed and / or ibuprofen every 6 hours as needed ( As long as your primary care physician has told you that it ok to take both. For fever/aches/pains ER if no less than 101 despite Tylenol or Motrin * Humidifier/vaporizer or hot steamy shower * Mucinex for your cough Be sure to drink lots of water. *Start steroid tomorrow. Helps with inflammation therefore, cough and wheezing. Follow directions on the package. Reviewed side effects. Patient reports taking them before. Follow up IMMEDIATELY for new or worsening of symptoms OR no noticeable improvement over the next 48-72 hours. 911 immediately for any life threatening symptoms such as chest pain or difficulty breathing Clinical Impressions Clinical Impression: Sinusitis Qualifiers: Sinusitis location: unspecified location Chronicity: unspecified Qualified Code(s): J32.9 - Chronic sinusitis, unspecified Instructions Patient Instructions: Acute Bronchitis, DI for Sinusitis Print Language Print Language: Pashto Discharge ED Provider[place] Marylou De P[place] [facility] [place] General Stated complaint: cough, sore throat, drainage Mode of Arrival: Ambulatory Source of Information: Patient Limitations: No Limitations Time Seen by Provider: 03/02/24 12:20 Description of Symptoms (Recalled from Triage Doc. by RN): PATIENT C/O SINUS PRESSURE, COUGH, CHEST CONGESTION, CHILLS AND BODY ACHES X 3 DAYS HEENT Symptoms (Recalled from RN notes): Yes Resp Symptoms (Recalled from RN notes): Yes Skin Symptoms (Recalled from RN notes): No MS Symptoms (Recalled from RN notes): No Functional Status (Recalled from RN notes): WNL History of Present Illness Provider Complaint: Patient states that she started last week with sinus pain and pressure and for the last 3 days symptoms has got worse States that she is having sinus pain and pressure sinus headache, cough and feels like it is trying to move into her chest area States that she isnt coughing anything up and has had some chills and body aches Related Data Home Medications ?Medication ?Instructions ?Recorded ?Confirmed budesonide-formoterol HFA 80 2 puff inhalation BID 03/02/24 03/02/24 mcg-4.5 mcg/actuation aerosol inhaler (Symbicort) cetirizine 10 mg tablet 10 mg PO DAILY 03/02/24 03/02/24 dicyclomine 20 mg tablet 20 mg PO QID 03/02/24 03/02/24 methotrexate sodium 2.5 mg tablet 2.5 mg PO DAILY 03/02/24 03/02/24 montelukast 10 mg tablet 10 mg PO DAILY 03/02/24 03/02/24 omeprazole 40 mg capsule,delayed 40 mg PO BID 03/02/24 03/02/24 release tizanidine 2 mg tablet 2 mg PO HS 03/02/24 03/02/24 tizanidine 4 mg tablet 4 mg PO HS 03/02/24 03/02/24 Previous Rx's ?Medication ?Instructions ?Recorded blood pressure test kit-large #1 ea 10/08/23 azithromycin 250 mg tablet See Rx Instructions PO .COMPLEX 5 03/02/24 (Zithromax Z-Trevon) days #6 tabs guaifenesin 600 mg tablet, 600 mg PO BID PRN cough #20 tabs 03/02/24 extended release 12 hr (Mucinex) methylprednisolone 4 mg tablets in See Rx Instructions .Route 03/02/24 a dose pack (Medrol (Trevon)) .COMPLEX 6 days #21 tabs Allergies Allergy/AdvReac Type Severity Reaction Status Date / Time amoxicillin Allergy vaginal Verified 12/23/23 11:10 itching Sulfa (Sulfonamide Allergy hives Verified 12/23/23 11:10 Antibiotics) Worker's Comp Is this a Worker's Comp case?: No [facility] Disclaimer: The information contained in this section may have been updated after the patient was seen, as this information can be updated by other users. Medical History Family history of early CAD Normal hearing test of both ears Tinnitus aurium Bilateral chronic serous otitis media Chronic eustachian tube dysfunction Dizziness Tinnitus CKD (chronic kidney disease) Primary hypertension Acquired hypothyroidism Hyperlipidemia Chronic obstructive pulmonary disease Rheumatoid arthritis Gastroesophageal reflux disease Allergic rhinitis Vitamin D deficiency Migraine headache Pain, dental Right ear pain Surgical History History of bilateral carpal tunnel release (~2015) History of appendectomy History of elbow surgery History of shoulder surgery History of tubal ligation History of colonoscopy (~2014) Family History Other Hyperlipidemia Hypertension Social History Smoking Status: Never smoker alcohol intake: never current occupational status: retired Travel in the last 8 weeks: None Have you lived/traveled outside US in past 30 days?: No Contact w/someone who lives/traveled outside US past 30 days?: No Exposure to someone with infectious disease in past 14 days?: No Do you have a fever (greater than 100.4 F or 38 C)?: No Have you tested positive for COVID-19: No Exposed to someone with COVID-19 in past 14 days?: No Do you have a sore throat?: Yes Do you have a cough?: Yes Do you have any weakness?: No Do you have any diarrhea?: No Are you experiencing any unusual bleeding?: No Do you have any muscle aches/pain?: No Do you have any abdominal pain?: No Are you experiencing loss of taste or smell?: No ROS Obtained: Yes All systems reviewed & no additional complaints except as documented and Yes Systems reviewed as appropriate & no additional complaints except as documented Constitutional Constitutional: Reports system reviewed and no additional complaints, except as documented, Reports as per HPI, Reports body ache, Reports chills, Reports fever(s) and Reports headache(s) ENT Ears, Nose, Mouth, and Throat: Reports system reviewed and no additional complaints, except as documented, Reports as per HPI, Reports headache(s), Reports sinus pain and Reports sinus pressure Cardiovascular Cardiovascular: Reports system reviewed and no additional complaints, except as documented and Reports as per HPI Respiratory Respiratory: Reports system reviewed and no additional complaints, except as documented, Reports as per HPI, Denies shortness of breath, Reports chest congestion and Reports cough Gastrointestinal Gastrointestingal: Reports system reviewed and no additional complaints, except as documented and as per HPI Neurologic Neurologic: Reports headache(s) Physical Exam General General appearance: alert and in no apparent distress ENT ENT exam: Present mucous membranes moist Expanded ENT Exam Nose exam: Present sinus tenderness Respiratory Respiratory exam: Present normal lung sounds bilaterally; Absent respiratory distress or wheezes Cardiovascular Cardiovascular exam: Present regular rate, normal rhythm and normal heart sounds Abdominal Exam Abdominal exam: Present soft and normal bowel sounds; Absent distention or tenderness Neurological Exam Neurological exam: Present alert, oriented X3 and normal gait Medical Decision Making Medical Records Screening: Per USPSTF and CDC recommendations, given the prevalence of disease in our region, it is our hospital?s policy to screen for HIV and viral Hepatitis for all patients aged 18 and over and those with ongoing risk factors. Jered Inquiry Pt receiving controlled substance: No Jered was queried for this patient: No Vital Signs: 12/17/24 12:05 Temperature 100.6 F H Temperature Source Oral Pulse Rate [Left Brachial] 96 H Respiratory Rate 21 Blood Pressure [Left Arm] 149/76 H Blood Pressure Mean [Left Arm] 100 Blood Pressure Source [Left Arm] Automatic Cuff Blood Pressure Position [Left Arm] Sitting 02 Sat by Pulse Oximetry 97 Oxygen Delivery Method Room Air Lab Data Lab results reviewed: Yes I reviewed the patient's lab results. Medical Decision Narrative: Jackie states that she has taken oral steriods in the past without complications or reactions
[2024-03-02 12:31] LABS: UTC Influenza A Antigen Negative (Negative); UTC Influenza B Antigen Negative (Negative)
[2024-03-02] MEDS: METHYLPREDNISOLONE SOD SUCC 125MG VIAL 125 MG IM (12:43)
[2024-03-02 12:54] VITALS: BP 149/76; PULSE 96; RESP 21; TEMP 38.1; O2SAT 97
== END 2024-03-02 12:58 | disposition home or self-care (01) ==
PROVIDERS: Emergency Provider Nurse Practitioner; PCP Nurse Practitioner
DX: J32.9 Chronic sinusitis, unspecified (principal)
CPT/HCPCS: 87804; 96372; 99213; G0381; J2919

== ENCOUNTER 2024-04-14 09:14 | Outpatient (CLI) | payer MEDICARE, SELFPAY ==
[2024-04-14 17:54] LABS: Coronavirus 19, PCR Not Detected (NotDetected); Human Rhinovirus Not Detected (NotDetected); Influenza A, PCR Not Detected (NotDetected); Influenza B, PCR Not Detected (NotDetected); Respiratory Syncytial Virus Not Detected (NotDetected)
== END 2024-04-14 23:59 | disposition home or self-care (01) ==
LOC: LAB.DROPOF 04-15 09:15
PROVIDERS: PCP Nurse Practitioner; Visit Provider Nurse Practitioner
DX: J06.9 Acute upper respiratory infection, unspecified (principal)
CPT/HCPCS: 87631

== ENCOUNTER 2024-04-15 13:21 | Outpatient (CLI) | payer MEDICARE, SELFPAY ==
--- NOTE | 2024-04-15 13:25 | XR_ITS ---
FINAL REPORT TECHNIQUE: Chest PA & Lateral CLINICAL HISTORY: WHEEZING, ASTHMA EXACERBATION COMPARISON: 08/22/2021 FINDINGS: 2 views of the chest were performed. The heart size is normal. The mediastinum is within normal limits. There is no acute cardiopulmonary process. There are no pleural effusions. There is no pneumothorax. The bony thorax appears intact. IMPRESSION: No acute cardiopulmonary process. Reviewed, Interpreted and Dictated by Tong Robertson MD Transcribed by Josi Gutierrez Authenticated and [facility]
== END 2024-04-15 23:59 | disposition home or self-care (01) ==
LOC: RAD 13:22
PROVIDERS: PCP Nurse Practitioner; Visit Provider Nurse Practitioner
DX: J45.21 Mild intermittent asthma with (acute) exacerbation (principal)
CPT/HCPCS: 71046

== ENCOUNTER 2024-11-04 16:00 | Outpatient (CLI) | payer MEDICARE, SELFPAY ==
--- OUTSIDE RECORDS SUMMARY | 2024-09-22 14:00 | XMS_ITS | Encounter Summary ---
Author Organization [facility] Address [address] [place] [address] Care Team Providers Care Charge Master Analyst Name Role Phone Lj Perez MD Unavailable Unavailable Angie Otero APRN Primary Care Provider [phone] Reason for Visit * Oncology Medication Prior Authorization (Routine) - Authorized Specialty Diagnoses / Procedures Referred By Contac t Referred To Contact Diagnoses Rheumatoid arthritis involving multiple sites with positive rheumatoid factor (HCC) Other salvage determiner (current) drug therapy Procedures NM INFLIXIMAB NOT BIOSIMIL 10MG Marti Mehta MD [address] [place] [address] Phone: tel: fax: Marti Mehta MD [address] [place] [address] Phone: tel: fax: Referral ID Status Reason Start Date Expiration Date V isits Requested Visits Authorized [id number] Authorized 08/31/2024 99 99 Encounter Details Date Type Department Care Team (Latest Contact Info) Description 09/22/2024 2:00 PM EDT Office Visit [facility] [address] [place] [address] Drug therapy (Primary Dx); Rheumatoid arthritis involving multiple sites with positive rheumatoid factor (HCC) Social History Tobacco Use Types Packs/Day Years Used Date Smoking Tobacco: Former Cigarettes Passive Smoke Exposure: Past Smokeless Tobacco: Never Comments:Quit 2001 Alcohol Use Standard Drinks/Week Comments No 0 (1 standard drink = 0.6 oz pur e alcohol) Comments No Sex and Gender Information Value Date Recorded Sex Assigned at Not on file Legal Sex Female 4:30 AM EDT Gender Identity Not on file Sexual Orientation Not on file documented as of this encounter Last Filed Vital Signs Vital Sign Reading Time Taken Comments Blood Pressure 128/70 09/22/2024 3:40 PM EDT Pulse 70 09/22/2024 3:40 PM EDT Temperature - - Respiratory Rate 16 09/22/2024 3:40 PM EDT Oxygen Saturation 96% 09/22/2024 3:40 PM EDT Inhaled Oxygen Concentration - - Weight 87.1 kg (192 lb) 09/22/2024 1:55 PM EDT Height - - Body Mass Index 38.78 08/25/2024 1:02 PM EDT documented in this encounter Progress Notes * Holli Gonzalez RN - 09/22/2024 2:00 PM EDT Pt discharged stable Remicade 260mg aste 40mg documented in this encounter Plan of Treatment Upcoming Encounters Date Type Department Care Team (Late st Contact Info) Description 11/17/2024 1:00 PM EDT Office Visit [facility] [address] [place] [address] 11/19/2024 1:00 PM EDT Clinical Support [facility] [address] [id number] 12/07/2024 1:20 PM EDT Office Visit [facility] [address] [place] [address] Luis Monte MD [address] [place] [address] 02/24/2025 1:00 PM EST Office Visit [facility] [address] [place] [address] Jenny Washington, PROFESSOR OF SPORT MANAGEMENT [address] [place] [address] documented as of this encounter Visit Diagnoses Diagnosis Drug therapy- Primary Encounter for other specified aftercare Rheumatoid arthritis involving multiple sites with positive rheumatoid factor (HCC) documented in this encounter Administered Medications Inactive Administered Medications - up to 1 most recent administrations Medication Order MAR Action Action Date Dose Rate Site inFLIXimab (REMICADE) 3 mg/kg in sodium chloride 0.9 % 250 mL IVPB 3 mg/kg, Intravenous, at 125 mL/hr, ONCE, 1 dose, On Fri09/22/24 at 1400, Use an in-line 0.22 micron filter. Titrate per policy. Monitor patient for infusion-related reactions before and after increasing rate., Administer over 120 Minutes, Dx: 1. Drug therapy 2. Rheumatoid arthritis involving multiple sites with positive rheumatoid factor (HCC)Indications:Drug therapy,Rheumatoid arthritis involving multiple sites with positive rheumatoid factor (HCC) IV Started 09/22/2024 1:57 PM EDT 260 mg 125 mL/hr documented in this encounter Orders Medications Ordered That [place] ht Not Have Been Administered Count Last Ordered Date First Ordered Date inFLIXimab (REMICADE) 3 mg/k g in sodium chloride 0.9 % 250 mL IVPB 1 09/22/2024 documented in this encounter Care Teams Charge Master Analyst Relationship Specialty Start Date End Date Angie Otero, PROFESSOR OF SPORT MANAGEMENT [address] [place] [address] PCP - General Nurse Practitioner 11/03/23 Lj Perez MD Internal Medicine-Rheumatology 07/17/22 documented as of this encounter
--- OUTSIDE RECORDS SUMMARY | 2024-10-20 15:00 | XMS_ITS | Encounter Summary ---
Author Organization [facility] Address [address] [facility] [address] [place] [address] Care Team Providers Care Human Services Program Specialist Name Role Phone Lj Perez MD Unavailable Unavailable Angie Otero APRN Primary Care Provider [phone] Reason for Referral * Allergy Testing (Routine) - Closed Specialty Diagnoses / Procedures Referred By Contnewton t Referred To Contact Allergy Diagnoses Seasonal and perennial allergic rhinitis Procedures ALG ALLERGY ORDER Luis Monte MD [address] [place] [address] [place] [address] Phone: tel: fax: [facility] [address] [place] [address] Phone: tel: fax: Referral ID Status Reason Start Date Expiration Date Visits Re quested Visits Authorized [id number] Closed 10/20/2024 10/20/2025 1 1 Reason for Visit * Reason Comments Allergies Encounter Details Date Type Department Care Team (Late st Contact Info) Description 10/20/2024 3:00 PM EDT Office Visit [facility] [address] [place] [address] Luis Monte MD [address] [place] [address] [place] [address] Moderate persistent asthma without complication (Primary Dx); Seasonal and perennial allergic rhinitis Social History Tobacco Use Types Packs/Day Years Used Date Smoking Tobacco: Former Cigarettes Passive Smoke Exposure: Past Smokeless Tobacco: Never Tobacco Cessation:Counseling Given: Not Answered Comments:Quit 2001 Alcohol Use Standard Drinks/Week Comments [...] Sign Reading Time Taken Comments Blood Pressure 128/60 10/20/2024 2:37 PM EDT Pulse 79 10/20/2024 2:37 PM EDT Temperature 36.6 C (97.8 F) 10/20/2024 2:37 PM EDT Respiratory Rate - - Oxygen Saturation 98% 10/20/2024 2:37 PM EDT Inhaled Oxygen Concentration - - Weight 86.2 kg (190 lb 1.6 oz) 10/20/2024 2:37 P M EDT Height 149.9 cm (4' 11 ) 10/20/2024 2:37 PM EDT Body Mass Index 38.4 10/20/2024 2:37 PM EDT documented in this encounter Progress Notes * Luis Monte MD - 10/20/2024 3:00 PM EDT Images from the original note were not included. Emerald Romero 1950 74 y.o. female Today's Date: 10/20/2024 Referring Provider: No ref. provider found Allergy / Immunology New Consultation CC: Chief Complaint Patient presents with ??? Allergies Documented By: Alba Elliott CMA Pre-Charted By: Alba Elliott CMA HPI: Emerald Romero is a 74 y.o. female who is self referred for the evaluation of allergies Chronic allergies Was a pt of Dr Sparks who left the practice Pt was on AIT for 2 yrs for asthma and AR She was told to be allergic to mold, c, dog, dm, pollens AIT Currently being given by PCP at [place], [place] Usual sxs include a lot of PNdrip, ears pressure, fluid, nasal congestion Perennial with seasonal flares Currently on Singulair at night, Zyrtec in AM She was on Flonase however stopped a year ago due to nosebleeds Not currently on any nasal sprays Overall sxs are fairly controlled although would gets sxc with other pet exposures Her last allergy injection was 3 wks ago Feb 2024 coughing, wheezing, sob Saw PCP who tx Albuterol HHN and steroid injectrion Dx to have asthma about a year ago She's been on a maint inhaler for about 2 years but switched to Symbicort 80 about a year ago, and was increased to 160 about Mar 2024 She has been doing well ever since She rarely needs Albuterol Has been known to have recurrent bronchitis the past [address] Andujar Former smoker. Quit 20 years ago Asthma: Former patient of [facility] decades ago then changed to Dr Sparks Does the patient use any of the following medications daily? Symbicort 160-4.5 mcg w puffs BID Albuterol PRN On average, how many inhalation doses do you miss in a week? 0 List medications tried in the past and no longer used: no Has patient ever been: Hospitalized for respiratory problems: No Treated in emergency department/ Urgent Care for respiratory problems: No Does the patient have triggers: unknown Are symptoms seasonal or all year long: seasonal Worst season: winter During an exacerbation what symptoms does the patient have: cough Current symptoms include Patient is asymptomatic How many times in the past 2 years has the patient been treated with steroids: Unsure. A lot Does patient have a history of: Snoring/sleep apnea: yes - snoring Smoking: yes - over 20 years ago Beta debi use: no Do NSAIDS or aspirin cause patient shortness of breath: no Has the patient ever had: Pulmonary function test: Yes- [facility] Chest Xray: no Echocardiogram: no CT Scan: no Has the patient been treated for vitamin D deficiency: no Is there a family history of asthma involving Mom or Dad? no Asthma Control Test (ACT) In the past 4 weeks how much of the time did your asthma keep you from getting as much done as usually work/school/home? 5 During the past 4 weeks how often have you had shortness of breath? 5 During the past 4 weeks how often did your asthma symptoms (wheezing, coughing, shortness of breath, chest tightness, pain) wake you up at night or earlier than usually in the morning? 5 During the past 4 weeks how often have you used your rescue inhaler or nebulizer? 5 How would you rate your asthma control during the past 4 weeks? 5 Asthma control test (ACT) total score? 25 For the past 4 weeks, please rate the overall level of control of patient eye/nasal/ear allergy symptoms: (Rhinitis score) 10/10 Nasal Congestion: no Postnasal Drainage: no Runny Nose: no Itching of Skin or Mouth: no Sneezing/Nasal Itch: no Cough: no Itchy Eyes: no Watery Eyes: no Ear Problems: no Exercise Intolerance: no Wheezing: no Shortness of Breath: no Other Atopic and Immune History: Previous Allergy Treatment? yes allergy injections at [facility] Hx of Asthma? yes Hx of Allergic Rhinitis? yes Food Allergies? no Insect venom hypersensitivity? no Hx of Eczema? no Hx of hives? no Infections requiring hospitalization? no Any other types of infections yearly: Yes sinus infections Childhood illnesses: yes chicken pox, measles, mumps I, Luis Monte MD, have personally reviewed all above HPI elements in person and have updated as needed. ROS Easy Bruising 14 organ systems reviewed described in the HPI and were otherwise negative Environmental Hx: Dwelling: mobile home Shalini: hardwood floors, tile or linoleum floors, and [id number] carpeting Carpet in the bedroom: yes Pets in the home? none Bedroom:allergy-proof mattress or pillow covers, blinds or curtains, and rugs or carpeting Climate Control: forced hot air heat, central or room air conditioning, air filters, and humidifier Basement: No basement Dust Mite Controls: Dust mite controls are already in place. Tobacco Smoke in Home: no Occupation: Retired 0Current Outpatient Medications Medication Sig Dispense Refill ??? albuterol (PROVENTIL HFA;VENTOLIN HFA) 90 mcg/actuation Inhl HFA Aerosol Inhaler by Other routeas needed. ??? cetirizine (ZYRTEC) 10 mg Oral Tablet Take 10 mg by mouth daily. ??? Cholecalciferol, Vitamin D3, 25 mcg (1,000 unit) Oral Tablet, Chewable Take by mouth 4 times daily. ??? diltiazem 180 mg ER capsule Take 180 mg by mouth nightly. ??? folic acid (FOLVITE) 1 mg Oral Tablet Take 1 Tablet by mouth daily. 90 Tablet 1 ??? inFLIXimab (REMICADE) 100 mg IV Recon Soln Inject into the vein Every 8 weeks. ??? LEVOthyroxine (SYNTHROID) 100 mcg Oral Tablet Take 100 mcg by mouth daily. ??? lisinopril-hydrochlorothiazide (PRINZIDE;ZESTORETIC) 20-12.5 mg per tablet Take 1 Tab by mouth every morning. ??? methotrexate 2.5 mg Oral Tablet Take 4 Tablets by mouth once a week. Taken on Friday 60 Tablet 1 ??? montelukast (SINGULAIR) 10 mg Oral Tablet Take by mouth every evening. ??? omeprazole (PRILOSEC) 40 mg Oral Capsule, Delayed Release(E.C.) Take 1 Capsule by mouth 2 timesdaily. 60 Capsule 2 ??? pyridoxine, vitamin B6, (B-6) 100 mg Oral Tablet Take by mouth daily. ??? rosuvastatin (CRESTOR) 10 mg Oral Tablet Take 10 mg by mouth daily. ??? SYMBICORT 160-4.5 mcg/actuation Inhl HFA Aerosol Inhaler Inhale 2 Puffs into the lungs 2 times daily. ??? tiZANidine (ZANAFLEX) 2 mg Oral Tablet Take 1 Tablet by mouth 2 times daily as needed for Pain.180 Tablet 1 ??? zinc gluconate 50 mg Oral Tablet Take 50 mg by mouth daily. ??? SYMBICORT 80-4.5 mcg/actuation Inhl HFA Aerosol Inhaler Inhale 2 Puffs into the lungs 2 times daily. (Patient not taking: Reported on 10/19/2024) No current facility-administered medications for this visit. Past Medical History: Diagnosis Date ??? Asthma ??? Basal cell carcinoma 2021 ??? COPD (chronic obstructive pulmonary disease) (HCC) ??? Heartburn ??? Hyperlipidemia ??? Hypertension ??? Osteoarthritis ??? Seasonal allergies ??? Thyroid disease There are no active hospital problems to display for this patient. Family History Problem Relation Age of Onset ??? Heart Disease Mother ??? High Blood Pressure Mother ??? High Blood Pressure Father ??? Diabetes Maternal Grandmother ??? Anesth Problems Neg Hx Allergies Allergen Reactions ??? Amoxicillin Itching ??? Sulfa (Sulfonamide Antibiotics) Itching Tingling, burning and itching skin Social History Socioeconomic History ??? Marital status: Spouse name: Not on file ??? Number of children: Not on file ??? Years of education: Not on file ??? Highest education level: Not on file Occupational History ??? Not on file Tobacco Use ??? Smoking status: Former Types: Cigarettes Passive exposure: Past ??? Smokeless tobacco: Never ??? Tobacco comments: Quit 2002 Vaping Use ??? Vaping status: Never Used Substance and Sexual Activity ??? Alcohol use: No ??? Drug use: No ??? Sexual activity: Not on file Other Topics Concern ??? Not on file Social History Narrative ??? Not on file Social Drivers of Health Financial Resource Strain: Not on file Food Insecurity: Not on file Transportation Needs: Not on file Physical Activity: Not on file Stress: Not on file Social Connections: Not on file Intimate Partner Violence: Not on file Housing Stability: Not on file Physical Examination: Vitals: 10/20/24 1437 BP: 128/60 BP Location: Left arm Patient Position: Sitting Pulse: 79 Temp: 97.8 ??F (36.6 ??C) TempSrc: Forehead SpO2: 98% Weight: 190 lb 1.6 oz (86.2 kg) Height: 4' 11 (1.499 m) Body mass index is 38.4 kg/m??. General Appearance: WD WN Appears well. NAD EYES: Conjunctiva:not injected, Lids: normal, Allergic shiners: none EARS: Canals: Clear,TMs: nl NOSE: Nasal crease:none,Turbinates: moist, pink, no edema. Nasal discharge: none Polyps:none Septum:midline MOUTH/ THROAT: mucous membranes moist, pharynx normal without lesions; no thrush NECK: CLA: none, Thyroid: normal CHEST/LUNGS: symmetrical expansion and clear(no rales/wheezing) HEART: Heart Sounds: normal, No m/r/g; Rhythm: regular EXTREMITIES: Edema:none; Clubbing: none; Cyanosis: none SKIN: normal. No hives NEURO: alert and oriented x3. CNII-XII grossly intact. No gross deficits. OTHER: Labs/Xray/PFT: Results for orders placed or performed in visit on 10/20/24 POCT FENO Result Value Ref Range [facility] FENO 28 PPB Impression Elevated FeNO. Intermediate level POCT FVC/FEV1 STUDY Impression Pre LLN Best FVC 2.20L (95%) 1.72L FEV1 1.87L (108%) 1.22L FEV1/FVC 85% (113%) 66% Performed by Abla Elliott CMA Documented by Alba Elliott CMA Reviewed by: Luis Monte MD INTERPRETATION: PFT meets repeatability and acceptability criteria Flow-volume loop shows no evidence of upper airway obstruction. Normal spirometry Luis Monte M.D. Allergy/Immunology [facility] [id number] Fax: [phone] Component Latest Ref Rng 08/05/2024 WBC 3.8 - 10.8 Thousand/uL 4.6 RBC 3.80 - 5.10 Million/uL 4.25 Hgb 11.7 - 15.5 g/dL 12.8 Hct 35.0 - 45.0 % 39.7 MCV 80.0 - 100.0 fL 93.4 MCH 27.0 - 33.0 pg 30.1 MCHC 32.0 - 36.0 g/dL 32.2 RDW 11.0 - 15.0 % 14.0 Platelets 140 - 400 Thousand/uL 187 MPV 7.5 - 12.5 fL 11.7 Neut# 1,500 - 7,800 cells/uL 2,590 Lymph# 850 - 3,900 cells/uL 1,274 Monocytes(Absolute) 200 - 950 cells/uL 506 Eos 15 - 500 cells/uL 189 Baso# 0 - 200 cells/uL 41 Neut Percent % 56.3 Lymph Percent % 27.7 Monocytes % 11.0 Eos Percent % 4.1 Baso Percent % 0.9 Assessment / Plan: Emerald was seen today for allergies. Diagnoses and all orders for this visit: Moderate persistent asthma without complication - POCT FENO - POCT FVC/FEV1 STUDY Seasonal and perennial allergic rhinitis - ALG ALLERGY ORDER Schedule for allergy skin testing to aeroallergens Pt needs to avoid oral antihistamines such as Zyrtec at least 7 days prior to allergy skin testing. Cont Allergy injections but will need new extracts pending above allergy testing results Reviewed PFT and FeNO results PFT is wnl FeNO is intermediate Cont Symbicort 160-4.5 2 p bid Cont Albuterol HFA prn Cont Cetirizine 10 mg daily but stop 7 days prior to allergy testing Cont montelukast 10 mg daily Obtain medical records from [facility] Follow-up after above procedures. Return for Allergy skin testing. Luis Monte M.D. [facility]ergy[facility]ology [facility] [address] [place] [address] [place] [address] documented in this encounter Miscellaneous Notes * Patient Instructions - Luis Monte MD - 10/20/2024 3:00 PM EDT Schedule for allergy skin testing to aeroallergens Pt needs to avoid oral antihistamines such as Zyrtec at least 7 days prior to allergy skin testing. Cont Allergy injections but will need new extracts pending above allergy testing results Obtain medical records from [facility] Follow-up after above procedures. documented in this encounter Plan of Treatment Upcoming Encounters Date Type Department Care Team (Late st Contact Info) Description 11/17/2024 1:00 PM EDT [facility] [address] [place] [phone] 11/19/2024 1:00 PM EDT Clinical Support [facility] [address] [address] 12/07/2024 1:20 PM EDT Office Visit [facility] [address] [place], [place] [id number] Luis Monte MD [address] [place] [address] 02/24/2025 1:00 PM EST Office Visit [facility] [address] [place] [address] Jenny [place], [employer] [address] [place] [address] documented as of this encounter Procedures Procedure Name Priority Date/Time Associated Diagnosis Comments POCT FVC/FEV1 STUDY Routine 10/20/2024 3:16 PM EDT Moderate persistent asthma without complication POCT FENO Routine 10/20/2024 3:15 PM EDT Moderate persistent asthma without complication documented in this encounter Results * POCT FVC/FEV1 STUDY (10/20/2024 3:16 PM EDT) 10/20/2024 3:16 PM EDT Impressions [facility] - 10/20/2024 3:17 PM EDT Pre LLN Best FVC 2.20L (95%) 1.72L FEV1 1.87L (108%) 1.22L FEV1/FVC 85% (113%) 66% Performed by Alba Elliott CMA Documented by Alba Elliott CMA Reviewed by: Luis Monte MD INTERPRETATION: PFT meets repeatability and acceptability criteria Flow-volume loop shows no evidence of upper airway obstruction. Normal spirometry Luis Monte M.D. Allergy/Immunology [facility] [address] Fax: us Luis Monte MD POINT OF CARE [place] ORDERA BLES Final Result [facility] * (ABNORMAL) POCT FENO (10/20/2024 3:15 PM EDT) [facility]NT[facility] FENO 28 PPB [facility] 10/20/2024 3:15 PM EDT Impressions [facility] - 10/20/2024 3:15 PM EDT Elevated FeNO. Intermediate level us Luis Monte MD POINT OF CARE TEST ORDERAB LES Final Result [facility] documented in this encounter Visit Diagnoses Diagnosis Moderate persistent asthma without complication- Primary Unspecified asthma Seasonal and perennial allergic rhinitis Allergic rhinitis, cause unspecified documented in this encounter Orders Nursing Count Last Ordered Date First Orde red Date ALG ALLERGY ORDER 1 10/20/2024 documented in this encounter Care Teams Human Services Program Specialist Relationship Specialty Start Date End Date Angie Otero, [employer] [facility] [address] [place] [phone] PCP - General Nurse Practitioner 11/03/23 Lj Perez MD Internal Medicine-Rheumatology 07/17/22 documented as of this encounter
[2024-11-04 19:05] LABS: Hematocrit 38.7 % (37.0-47.0); Hemoglobin 13.0 g/dL (12.2-16.2); Immature Granulocytes % 0.4 %; Mean Corpuscular HGB Conc 33.6 g/dL (31.8-35.4); Mean Corpuscular Hemoglobin 31.0 pg (27.0-31.2); Mean Corpuscular Volume 92.1 fl (81-99); Nucleated Red Blood Cells % 0 %; Platelet Count 184 K/mm3 (142-424); Red Blood Count 4.20 M/mm3 (4.20-5.40); Red Cell Distribution Width-SD 55.3 fL; White Blood Count 4.7 K/mm3 (4.8-10.8)
[2024-11-04 20:12] LABS: Hemoglobin A1C 5.5 % (4.0-6.0)
[2024-11-04 20:13] LABS: Free T4 (Free Thyroxine) 1.82 ng/dl (0.78-2.19)
[2024-11-04 20:14] LABS: 25-OH Vitamin D, Total 88.3 ng/mL (30-100)
[2024-11-04 20:45] LABS: Hepatitis C Ab Qual. W/ RFX NEGATIVE (Negative)
[2024-11-04 21:19] LABS: Alanine Aminotransferase 27 U/L (12-78); Chloride 107 mmol/L (98-107); Creatinine,Serum 1.20 mg/dl (0.52-1.04); Estimated Glomerular Filt Rate 44 ml/min (>60); GFR (African American) 53 ML/MIN (>60); Potassium 4.5 mmoL/L (3.5-5.1); Sodium 140 mmol/L (136-145)
[2024-11-04 21:53] LABS: Albumin Level 4.4 g/dl (3.5-5.0); Albumin/Globulin Ratio 1.6 (1.1-1.8); Alkaline Phosphatase 106 U/L (38-126); Anion Gap 12.5 mEq/L (5-15); Aspartate Amino Transferase 35 U/L (14-36); Bilirubin,Total 0.5 mg/dl (0.2-1.3); Blood Urea Nitrogen 25 mg/dl (7-17); Calcium 9.4 mg/dl (8.4-10.2); Carbon Dioxide 25 mmol/L (22.0-30.0); Cholesterol 168 mg/dl (140-200); Globulin 2.8 g/dL (1.3-3.2); Glucose 81 mg/dl (74-100); HDL Cholesterol 76 mg/dl (40-60); Total Protein,Serum 7.2 g/dl (6.3-8.2); Triglycerides 72 mg/dl (30-150)
[2024-11-04 22:24] LABS: Thyroid Stimulating Hormone 0.61 uIU/mL (0.465-4.68)
[2024-11-04 22:43] LABS: Vitamin B12 644 pg/mL (239-931)
--- OUTSIDE RECORDS SUMMARY | 2024-11-08 12:15 | XMS_ITS | Encounter Summary ---
Author Organization [facility] Address [address] [facility] [address] [place] [address] Care Team Providers Care Him Coder Name Role Phone Lj Perez MD Unavailable Unavailable Angie Otero APRN Primary Care Provider [phone] Encounter Details Date Type Department Care Team (Late st Contact Info) Description 10/20/2024 Telephone [facility] [address] [phone] Luis Monte MD [address] [place] [id number] Social History Tobacco Use Types Packs/Day Years [...] on file documented as of this encounter Miscellaneous Notes * Telephone Encounter - Genevieve Bo CCMA - 10/20/2024 3:19 PM EDT Called patient to schedule: no- scheduled in office Ordering provider: MARYA Diagnosis code for testing: J30.89 Test details: Environmental Is Spirometry/PFT required: no Is FeNO required: no Current Outpatient Medications Medication albuterol (PROVENTIL HFA;VENTOLIN HFA) 90 mcg/actuation Inhl HFA Aerosol Inhaler cetirizine (ZYRTEC) 10 mg Oral Tablet Cholecalciferol, Vitamin D3, 25 mcg (1,000 unit) Oral Tablet, Chewable diltiazem 180 mg ER capsule folic acid (FOLVITE) 1 mg Oral Tablet inFLIXimab (REMICADE) 100 mg IV Recon Soln LEVOthyroxine (SYNTHROID) 100 mcg Oral Tablet lisinopril-hydrochlorothiazide (PRINZIDE;ZESTORETIC) 20-12.5 mg per tablet methotrexate 2.5 mg Oral Tablet montelukast (SINGULAIR) 10 mg Oral Tablet omeprazole (PRILOSEC) 40 mg Oral Capsule, Delayed Release(E.C.) pyridoxine, vitamin B6, (B-6) 100 mg Oral Tablet rosuvastatin (CRESTOR) 10 mg Oral Tablet SYMBICORT 160-4.5 mcg/actuation Inhl HFA Aerosol Inhaler SYMBICORT 80-4.5 mcg/actuation Inhl HFA Aerosol Inhaler tiZANidine (ZANAFLEX) 2 mg Oral Tablet zinc gluconate 50 mg Oral Tablet No current facility-administered medications for this visit. Medications to hold for testing and duration: Zyrtec 7, Multivitamin 7 Patients insurance/deductible: Medicare $250 deposit required? no- medicare documented in this encounter Plan of Treatment Upcoming Encounters Date Type Department Care Team (Late st Contact Info) Description 11/17/2024 1:00 PM EDT Office Visit [facility] [address] [place] [address] 11/19/2024 1:00 PM EDT Clinical Support [facility] [address] [place] [phone] 12/07/2024 1:20 PM EDT Office Visit [facility] [address] [place] [address] Luis Monte MD [address] [place] [address] [place] [phone] 02/24/2025 1:00 PM EST Office Visit [facility] [address] [place] [address] Jenny [place], SOFI [address] [place] [address] documented as of this encounter Visit Diagnoses Not on filedocumented in this encounter Care Teams Him Coder Relationship Specialty Start Date End Date Angie Otero APRN [address] [facility] [address] [place] [address] PCP - General Nurse Practitioner 11/03/23 Lj Perez MD Internal Medicine-Rheumatology 07/17/22 documented as of this encounter
--- OUTSIDE RECORDS SUMMARY | 2024-11-08 12:15 | XMS_ITS | Clinical Summary ---
Author Organization [facility] Address [address] [place] [address] Phone Care Team Providers Care Inspector And Mender Name Role Phone Lj Perez MD Unavailable Unavailable Angie Otero APRN Primary Care Provider [phone] Allergies Active Allergy Reactions Criticality Noted Date Comments Amoxicillin Itching Low 05/21/2010 Sulfa (Sulfonamide Antibiotics) Itching Low 12/29/2015 Tingling, burning and itching skin Medications montelukast (SINGULAIR) 10 mg Oral Tablet Take by mouth every evening. Active diltiazem 180 mg ER capsule Take 180 mg by mouth nightly. Active lisinopril-hydro chlorothiazide (PRINZIDE;ZESTOR ETIC) 20-12.5 mg per tablet Take 1 Tab by mouth every morning. Active Cholecalciferol, Vitamin D3, 25 mcg (1,000 unit) Oral Tablet, Chewable Take by mouth 4 times daily. Active pyridoxine, vitamin B6, (B-6) 100 mg Oral Tablet Take by mouth daily. Active rosuvastatin (CRESTOR) 10 mg Oral Tablet Take 10 mg by mouth daily. 05/30/2022 Active zinc gluconate 50 mg Oral Tablet Take 50 mg by mouth daily. Active inFLIXimab (REMICADE) 100 mg IV Recon Soln Inject into the vein Every 8 weeks. Active cetirizine (ZYRTEC) 10 mg Oral Tablet Take 10 mg by mouth daily. Active albuterol (PROVENTIL HFA;VENTOLIN HFA) 90 mcg/actuation Inhl HFA Aerosol Inhaler by Other route as needed. 11/12/2020 Active SYMBICORT 80-4.5 mcg/actuation Inhl HFA Aerosol Inhaler Inhale 2 Puffs into the lungs 2 times daily. 07/07/2023 Active LEVOthyroxine (SYNTHROID) 100 mcg Oral Tablet Take 100 mcg by mouth daily. 05/14/2023 Active folic acid (FOLVITE) 1 mg Oral Tablet Take 1 Tablet by mouth daily. 90 Tablet 1 08/05/2024 Active methotrexate 2.5 mg Oral TabletIndication s:Rheumatoid arthritis involving multiple sites with positive rheumatoid factor (HCC) Take 4 Tablets by mouth once a week. Taken on Friday 60 Tablet 1 08/05/2024 Active SYMBICORT 160-4.5 mcg/actuation Inhl HFA Aerosol Inhaler Inhale 2 Puffs into the lungs 2 times daily. 08/07/2024 Active tiZANidine (ZANAFLEX) 2 mg Oral TabletIndication s:Lumbar spondylosis Take 1 Tablet by mouth 2 times daily as needed for Pain. 180 Tablet 1 08/25/2024 Active omeprazole (PRILOSEC) 40 mg Oral Capsule, Delayed Release(E.C.) Take 1 Capsule by mouth 2 times daily. 60 Capsule 2 09/07/2024 Active Active Problems Problem Noted Date Diagnosed Date S/P laparoscopic cholecystectomy 07/12/2024 RUQ pain 06/04/2024 Right upper quadrant abdominal pain 05/13/2024 Assessment & Plan (05/13/2024 8:39 AM EST): Lumbar spondylosis 01/23/2023 Primary generalized (osteo)arthritis 01/23/2023 Assessment & Plan (08/03/2024 5:04 PM EDT): Left rotator cuff tear Chronic, symptomatically stable Has declined to consider surgery s/p right rotator cuff repair shoulder stiffness and discomfort stable Osteoarthritis knees Chronic, symptomatically stable Encounter for long-term (cur rent) use of high-risk medication 07/18/2022 Assessment & Plan (08/03/2024 5:03 PM EDT): Discussed risks and benefits of Methotrexate (MTX). Risks including but not limited pneumonitis, hepatoxicity, bone marrow suppression, anemia, infection, fatigue, methotrexate related flu like symptoms, GI side effects, rash, alopecia, headache and/or stomatitis were discussed with the patient. - Patient understands that folic acid should be taken daily or as instructed by provider. Patient understands that regular lab work is required while on methotrexate. Patient understands the drug should be administered weekly. - Patient understands to avoid conception during and for 6 months after the final dose of methotrexate given embryo- toxicity, including . - Patient instructed to read educational material concerning medication. Nontraumatic complete tear of left rotator cuff 07/18/2022 S/P right rotator cuff repair 07/18/2022 Rheumatoid arthritis involvi ng multiple sites with positive rheumatoid factor 06/10/2022 Assessment & Plan (08/03/2024 5:05 PM EDT): Chronic, in remission Current treatmment of Remicade and Methotrexate 12.5/5 pills She will lower methotrexate to 10 mg weekly starting 01/2024 Drug therapy 06/10/2022 Bilateral carpal tunnel syndrome 01/03/2016 Encounters Date Type Department Care Team Description 10/20/2024 3:00 PM EDT Office Visit [facility] [address] [place] [address] Luis Monte MD Moderate persistent asthma without complication (Primary Dx); Seasonal and perennial allergic rhinitis 10/20/2024 Telephone ENT Ancillary Allergy [address] [place] [phone] Luis Monte MD 10/15/2024 Travel 09/22/2024 2:00 PM EDT Office Visit [facility] [address] [place] [address] Drug therapy (Primary Dx); Rheumatoid arthritis involving multiple sites with positive rheumatoid factor (HCC) 09/06/2024 Refill [facility] [address] [place] [address] Corinne Frank APRN Medication Refill 08/31/2024 Orders Only [facility] [address] [place] [address] Marti Mehta MD Rheumatoid arthritis involving multiple sites with positive rheumatoid factor (HCC) (Primary Dx); Drug therapy 08/25/2024 1:00 PM EDT Office Visit [facility] [address] [place] [address] Marti Mehta MD Rheumatoid arthritis involving multiple sites with positive rheumatoid factor (HCC) (Primary Dx); Primary generalized (osteo)arthritis; Encounter for long-term (current) use of high-risk medication; Drug therapy; Lumbar spondylosis; Nontraumatic complete tear of left rotator cuff; S/P right rotator cuff repair 08/10/2024 Results Follow-Up [facility] [address] [place] [address] Jenny Washington, FOUNDRY OPERATOR CREATININE-QUEST, HEPATIC FUNCTION PANEL-QUEST, CBC WITH AUTO DIFF-QUEST, QUANTIFERON(R)-TB GOLD PLUS, 1-QUEST from Last 3 Months Surgical History Surgery Date Site/Laterality Comments APPENDECTOMY TUBAL LIGATION SHOULDER SURGERY FOOT SURGERY Left bone spur CARPAL TUNNEL RELEASE 01/04/2016 Hand/Bilateral BILATERAL CARPAL TUNNEL RELEASE ; Surgeon: Jesse Natarajan MD; Location: [facility]; Service: Hand CHOLECYSTECTOMY 07/02/2024 Abdomen/N/A Robotic cholecystectomy with firefly.; Surgeon: Talon Elder MD; Location: [facility]; Service: General Medical History Medical History Date Comments Hypertension Heartburn Osteoarthritis Thyroid disease Seasonal allergies Basal cell carcinoma 2021 Asthma COPD (chronic obstructive pulmonary disease) (HC C) Hyperlipidemia Family History Medical History Relation Name Comments High Blood Pressure Father Diabetes Maternal Grandmother Heart Disease Mother High Blood Pressure Mother Anesth Problems Neg Hx Relation Name Status Comments Father Alive Maternal Grandmother Mother Alive Social History Tobacco Use Types Packs/Day Years [...] on file Sexual Orientation Not on file Obstetrics History Last Filed Vital Signs Vital Sign Reading Time Taken Comments Blood Pressure 128/60 10/20/2024 2:37 PM EDT Pulse 79 10/20/2024 2:37 PM EDT Temperature 36.6 C (97.8 F) 10/20/2024 2:37 PM EDT Respiratory Rate 16 09/22/2024 3:40 PM EDT Oxygen Saturation 98% 10/20/2024 2:37 PM EDT Inhaled Oxygen Concentration - - Weight 86.2 kg (190 lb 1.6 oz) 10/20/2024 2:37 P M EDT Height 149.9 cm (4' 11 ) 10/20/2024 2:37 PM EDT Body Mass Index 38.4 10/20/2024 2:37 PM EDT Plan of Treatment Upcoming Encounters Date Type Department Care Team (Late st Contact Info) Description 11/17/2024 1:00 PM EDT Office Visit [facility] [address] [place] [address] 11/19/2024 1:00 PM EDT Clinical Support [facility] [address] [place] [phone] 12/07/2024 1:20 PM EDT Office Visit [facility] [address] [place], [place] [phone] Luis Monte MD [address] [place] [address] 02/24/2025 1:00 PM EST Office Visit [facility] [address] [place] [address] Jenny Washington, FOUNDRY OPERATOR [address] [place] [address] Health Maintenance Due Date Last Done Comments Wellness Exam Medicare 07/22/1953 COVID-19 Vaccine (#1) 07/22/1956 Hepatitis C Screening 07/22/1969 Zoster (1 of 2) 07/22/1970 Cologuard 07/22/1996 FIT 07/22/1996 Sigmoidoscopy 07/22/1996 Virtual Colonography 07/22/1996 RSV or 60+ (1 - Risk 60-74 years 1-dose series) 2011 Breast Cancer Screening 04/25/2018 04/25/19 17, 03/23/2013, 11/13/2011, Additional history exists Pneumococcal Vaccine 50+ (2 of 2 - PPSV23, PCV20, or PCV21) 03/04/2019 01/07/2019 Influenza Vaccine (#1) 2024 , 03/04/2018, 05/23/2017 Colon Cancer Screening 11/01/2028 Colonoscopy 11/01/2028 11/03/2023, 09/30/2013 DTaP/TDaP/Td (2 - Td or Tdap) 01/07/2029 01/07/2019, 05/24/1996 Bone Density Screening Completed 04/25/2016 Hepatitis B Vaccine Aged Out No longe r eligible based on patient's age to complete this topic Meningococcal B Vaccine Aged Out No l onger eligible based on patient's age to complete this topic Medical Devices Implanted Type Area [employer] Supervisor Device Identifier Shelf Expiration Date Model / Serial / Lot K-Wire \T\ Guide,.062 (1.6 mm) [id number] - [id number] Implanted:Qty: 1 on 06/01/2010 at [facility] Left: Foot MICROAIRE SURG INSTR 04/17/2014 1600-023 / / Log [id number] - [employer] 4.0 Cannulated Screw Set (Ti) - 1 - Screw Cannulated 4.0mm X 26mm Short Threaded With 2.5mm Hexagonal Socket Titanium Implanted:Qty: 1 on 06/01/2010 at [facility] Left: Foot [employer]:S [employer] 407.626 / / Log [id number] - [employer] 4.0 Cannulated Screw Set (Ti) - 1 - Screw Cannulated 4.0mm X 30mm Short Threaded With 2.5mm Hexagonal Socket Titanium Implanted:Qty: 1 on 06/01/2010 at [facility] Left: Foot [employer]:S [employer] [facility] 407.630 / / Procedures Procedure Name Priority Date/Time Associated Diagnosis Comments POCT FVC/FEV1 STUDY Routine 10/20/2024 3 :16 PM EDT Moderate persistent asthma without complication POCT FENO Routine 10/20/2024 3:15 PM EDT Moderate persistent asthma without complication COLONOSCOPY Routine 11/03/2023 11:39 AM EDT Encounter for colonoscopy due to history of colonic polyp DX BONE DENSITY AXIAL SKELETON Routine 04/25/2016 8:46 AM EST Screening for osteoporosis MM MAMMO DIGITAL SCREENING W CAD BILAT Routine 04/25/2016 8:14 AM EST Encounter for screening mammogram for malignant neoplasm of breast from Last 3 Months or Most Recently Relevant to Health Maintenance Results * POCT FVC/FEV1 STUDY (10/20/2024 3:16 [...] Luis Monte M.D. Allergy/Immunology [facility] [address] Fax: us Luis Monte MD POINT OF CARE WILLIAMS ORDERA BLES Final Result [facility] * (ABNORMAL) POCT FENO (10/20/2024 3:15 PM EDT) ENTAS FENO 28 PPB ENTAS 10/20/2024 3:15 PM EDT Impressions ENT[facility] - 10/20/2024 3:15 PM EDT Elevated FeNO. Intermediate level us Luis Monte MD POINT OF CARE TEST ORDERAB LES Final Result [facility] * COLONOSCOPY (11/03/2023 11:39 AM EDT) Anatomical Region Laterality Modality Endoscopy Narrative 11/03/2023 11:48 AM EDT Table formatting from the original result was not included. Findings No masses or polyps observed in the entire colon. Mild diverticulosis of the sigmoid colon. Small external and internal hemorrhoids Recommendation Repeat colonoscopy in 5 years, due: 11/01/2028 Personal history of colon polyps, borderline fair/adequate prep Resume home medications. Recommend a high-fiber diet. Pre-Procedure Diagnosis / Indication Encounter for colonoscopy due to history of colonic polyp Post-Procedure Diagnosis Encounter for colonoscopy due to history of colonic polyp Staff Staff Role No Staff Documented Medications See Anesthesia Record. Preprocedure A history and physical has been performed, and patient medication allergies have been reviewed. The patient's tolerance of previous anesthesia has been reviewed. The risks and benefits of the procedure and the sedation options and risks were discussed with the patient. All questions were answered and informed consent obtained. ASA 3 - Patient with severe systemic disease Details of the Procedure The patient underwent monitored anesthesia care, which was administered by an anesthesia professional. The patient's blood pressure, heart rate, level of consciousness, oxygen, respirations, ECG and ETCO2 were monitored throughout the procedure. A digital rectal exam was performed. The scope was introduced through the anus and advanced to the terminal ileum. Retroflexion was performed in the rectum. Bowel prep was adequate. The patient experienced no blood loss. The procedure was moderately difficult due to adhesions. The patient tolerated the procedure well. There were no apparent adverse events. Patient provided education and educated on specific discharge instructions. Patient educated on medications given during the procedure and new medications for discharge. Patient verbalizes understanding of discharge education. Patient stable and awaiting transport for discharge. Events Procedure Events Event Event Time ENDO SCOPE IN TIME 11/03/2023 11:19 AM ENDO CECUM REACHED 11/03/2023 11:26 AM ENDO SCOPE WITHDRAW BEGIN 11/03/2023 11:26 AM TSG LUME TI REACHED 11/03/2023 11:28 AM ENDO SCOPE OUT TIME 11/03/2023 11:39 AM Specimens No specimens collected us Bradley Garduno MD ENDOSCOPY PROCEDURE ORDERA BLES Final Result * DX BONE DENSITY AXIAL SKELETON (04/25/2016 8:46 AM EST) Anatomical Region Laterality Modality Dexa Scan 04/25/2016 Narrative 04/26/2016 8:34 AM EST Indication: The patient is a post-menopausal female under age 65 with clinical risk factors for an osteoporotic fracture that requires a bone density assessment. Study was performed on Horizon A Bone Density: Region BMD T-score Z-score AP Spine (L1-L4) 0.755 -2.7 -0.9 Femoral Neck (Left) 0.639 -1.9 -0.4 Total Hip (Left) 0.738 -1.7 -0.5 Femoral Neck (Right) 0.685 -1.5 0.0 Total Hip (Right) 0.818 -1.0 0.2 World Health Organization criteria for BMD interpretation classify patients as: Normal (T-score at or above -1.0), Low Bone Density (T-score between -1.0 and -2.5), or Osteoporotic (T-score at or below -2.5). T Scores are reported in Postmenopausal women and in men age 50 and older. Z-scores are reported in females prior to menopause and in males younger than age 50. 10-year Fracture Risk: FRAX not reported because: Some T-score for Spine Total or Hip Total or Femoral Neck at or below -2.5 Clinical Information Provided by Patient: Has rheumatoid arthritis. Has used or is currently using the following medications: Chemotherapy drugs, Thyroid medication Patient maximum height was 60. Menopause Age: 53 Patient is postmenopausal Interpretation: Bone mineral density is in the osteoporotic range. Medical evaluation for secondary causes of low bone density may be appropriate. A minimum of two years may be required between bone density studies due to inherent testing precision limitations. Intervals between BMD testing should be determined according to each patient's clinical status: typically one year after initiation or change of therapy is appropriate, with longer intervals once therapeutic effect is established. The spine portion of the study is limited by patient body habitus with elevated TH value and visual hypertrophic changes. Reported by: Tonja Wilson PA-C, MARIBETH on 04/25/2016 10:34:00 AM. [facility] IMG DEXA ORDERABLES Final Resul t * MM MAMMO DIGITAL SCREENING W CAD BILAT (04/25/2016 8:14 AM EST) Anatomical Region Laterality Modality Breast Bilateral Mammography 04/26/2016 9:23 AM EST Impressions 04/26/2016 4:13 PM EST : Negative ([id number]) ~ RECOMMENDATION: Routine screening mammogram in 1 year. ~ DISCLAIMER * The patient with a palpable abnormality, unexplained by breast imaging, should be managed on clinical basis by the attending physician. * Breast imaging has a false negative rate of 15%. * The patient was notified by mail of the results of this examination. *The patient's information was entered into a reminder system with a target due date for the next mammogram. The mammogram was reviewed by a Radiologist and CAD. Narrative 04/26/2016 4:13 PM EST Procedure:MM MAMMO DIGITAL SCREENING W CAD BILAT ~ Reason for exam: screening, asymptomatic. ~ MM MAMMO DIG SCREEN CAD BILAT Bilateral CC and MLO view(s) were taken. There are scattered fibroglandular densities. Compared to prior studies the most recent being 03-23-13 ~ [facility] G MAMMOGRAPHY ORDERABLES Deepthi l Result from Last 3 Months or Most Recently Relevant to Health Maintenance Insurance [facility] MEDICARE O MR [facility] MEDICARE PPO MR [facility] MEDICARE PPO MR [facility] MEDICARE PPO MR [facility] MEDICARE PPO MR Care Teams Inspector And Mender Relationship Specialty Start Date End Date Angie Otero APRN [address] [facility] [address] [place] [address] PCP - General Nurse Practitioner 11/03/23 Lj Perez MD Internal Medicine-Rheumatology 07/17/22
--- OUTSIDE RECORDS SUMMARY | 2024-11-08 12:15 | XMS_ITS | Encounter Summary ---
Author Organization [facility] Address [address] [place] [address] Care Team Providers Care Recovery Advocate Name Role Phone Lj Perez MD Unavailable Unavailable Angie Otero APRN Primary Care Provider [phone] Encounter Details Date Type Department Care Team (Latest Contact Info) Description 08/10/2024 Results Follow-Up [facility] [address] [place] [address] Jenny Washington APRN [address] [place] [id number] CREATININE-QUEST, HEPATIC FUNCTION PANEL-QUEST, CBC WITH AUTO DIFF-QUEST, QUANTIFERON(R)-TB GOLD PLUS, 1-QUEST Social History Tobacco Use Types Packs/Day Years [...] on file documented as of this encounter Plan of Treatment Upcoming Encounters Date Type Department Care Team (Late st Contact Info) Description 11/17/2024 1:00 PM EDT Office Visit [facility] [address] [place] [address] 11/19/2024 1:00 PM EDT Clinical Support [facility] [address] [place] [address] 12/07/2024 1:20 PM EDT Office Visit [facility] [address] [place] [phone] Luis Monte MD [address] [place] [address] [place] [address] 02/24/2025 1:00 PM EST Office Visit [facility] [address] [place] [address] Jenny Washington APRN [address] [place] [address] documented as of this encounter Visit Diagnoses Not on filedocumented in this encounter Care Teams Recovery Advocate Relationship Specialty Start Date End Date Angie Otero, PARKING LOT SIGNALER [address] [facility] [address] [place] [address] PCP - General Nurse Practitioner 11/03/23 Lj Perez MD Internal Medicine-Rheumatology 07/17/22 documented as of this encounter
--- OUTSIDE RECORDS SUMMARY | 2024-11-08 12:15 | XMS_ITS | Clinical Summary ---
Author Organization [facility] Address [address] [place] [address] Care Team Providers Care Manager Neonatal Name Role Phone Unavailable Primary Care Provider Unavailabl e Source Comments This information has been disclosed to you from confidential records protectedfrom disclosure by state law. You shall make no further disclosure of thisinformation without the specific, written, and informed release of theindividual to whom it pertains, or as otherwise permitted by law. A generalauthorization for the release of medical or other information is not sufficientfor the purposes of therelease of HIV test results or diagnoses. [id number] Social History Tobacco Use Types Packs/Day Years Used Date Smoking Tobacco: Never Assessed Comments Unknown Sex and Gender Information Value Date Recorded Sex Assigned at Not on file Legal Sex Female 4:14 PM EST Gender Identity Not on file Sexual Orientation Not on file Plan of Treatment Not on file Insurance [employer] PPO MEDICARE
--- OUTSIDE RECORDS SUMMARY | 2024-11-08 12:15 | XMS_ITS | Encounter Summary ---
Author Organization [facility] [place] [address] Care Team Providers Care Sap Solutions Architect Name Role Phone Lj Perez MD Unavailable Unavailable Angie Otero APRN Primary Care Provider [phone] Encounter Details Date Type Department Care Team (Latest Contact Info) Description 10/15/2024 Travel Social History Tobacco Use Types Packs/Day Years [...] 11/17/2024 1:00 PM EDT Office Visit [facility] [address] [place] [address] 11/19/2024 1:00 PM EDT Clinical Support [facility] [address] [phone] 12/07/2024 1:20 PM EDT Office Visit [facility] [address] [place] [address] Luis Monte MD [address] [place] [address] [address] [place] [address] [place] [address] 02/24/2025 1:00 PM EST Office Visit [facility] [address] [place] [address] Jenny Washington APRN [address] [place] [address] documented as of this encounter Visit Diagnoses Not on filedocumented in this encounter Care Teams [employer] Architect Relationship Specialty Start Date End Date Angie Otero, SAND WORKER [address] [facility] [address] [place] [address] PCP - General Nurse Practitioner 11/03/23 Lj Perez MD Internal Medicine-Rheumatology 07/17/22 documented as of this encounter
== END 2024-11-04 23:59 | disposition home or self-care (01) ==
LOC: LAB.DROPOF 11-08 11:37
PROVIDERS: PCP Nurse Practitioner; Visit Provider Nurse Practitioner
DX: E78.5 Hyperlipidemia, unspecified (principal); I10 Essential (primary) hypertension; E55.9 Vitamin D deficiency, unspecified; Z86.39 Personal history of other endocrine, nutritional and metabolic disease; E03.9 Hypothyroidism, unspecified; Z11.59 Encounter for screening for other viral diseases
CPT/HCPCS: 80053; 80061; 82043; 82306; 82570; 82607; 83036; 84439; 84443; 85025; 86803; 87389